=== PATIENT | male | born 1950 | race African-American/Black ===

== ENCOUNTER 2017-06-26 04:56 | Inpatient (IN) ==
[2017-06-26] MEDS ORDERED: ACETAMINOPHEN 325 MG TABLET PO PRN (06:42)
[2017-06-26] MEDS ORDERED: ONDANSETRON 4 MG/2 ML VIAL IV PRN (06:42)
[2017-06-26] MEDS: MORPHINE 2 MG/1 ML SYRINGE IV PRN (09:20)
[2017-06-26] MEDS ORDERED: MORPHINE 2 MG/1 ML SYRINGE ONE (09:20)
[2017-06-26 10:28] LABS: Basophils # 0.1 10*3/uL (0.0-0.2); Basophils % 0.4 % (0.0-0.8); Eosinophils # 0.2 10*3/uL (0.0-0.87); Eosinophils % 1.2 % (0.00-10.9); Hematocrit 38.8 VOL% (42.0-52.0); Hemoglobin 13.1 GM/DL (14.0-18.0); Immature Granulocytes % 0.3 %; Immature Granulocytes Absolute 0.04 #; Lymphocytes # 0.7 10*3/uL (1.4-4.0); Lymphocytes % 5.1 % (21.2-54.2); Mean Corpuscular HGB Conc 33.8 GM/DL (32-36); Mean Corpuscular Hemoglobin 31 PG (27-34); Mean Corpuscular Volume 90.7 FL (87-102); Mean Platelet Volume 11.6 FL (9.6-12.0); Monocytes # 1.3 10*3/uL (0.11-0.8); Monocytes % 9.6 % (1.7-12.7); Neutrophils # 11.5 10*3/uL (1.4-7.4); Neutrophils % 83.4 % (38.7-73.9); Platelet Count 176 T/CUMM (130-400); Red Blood Count 4.28 MC/CUMM (3.8-5.5); Red Cell Distribution Width 16.4 % (9.3-17.3); White Blood Count 13.8 T/CUMM (4-12)
[2017-06-26 10:55] LABS: Albumin 2.3 G/DL (3.4-5.0); Bilirubin,Total 1.7 MG/DL (0.2-1.0); Calcium 8.9 MG/DL (8.5-10.1); Osmolality,Calculated 278.2 MOS/KG (273-304); Potassium 4.7 MMOL/L (3.5-5.1); Total Protein 8.1 G/DL (6.4-8.3)
[2017-06-26] MEDS ORDERED: GLUCAGON 1 MG VIAL IM PRN (10:55)
[2017-06-26] MEDS: PANTOPRAZOLE 40 MG TABLET PO SCH (11:05)
[2017-06-26] MEDS ORDERED: MAGNESIUM SULF RIDER 4 GM in PREMIX 1 EACH IV PRN (11:21)
[2017-06-26] MEDS ORDERED: MAGNESIUM SULF RIDER 2 GM in PREMIX 1 EACH IV PRN (11:21)
[2017-06-26] MEDS ORDERED: POTASSIUM CHLORIDE RIDER 10 MEQ in PREMIX 1 EACH IV PRN (11:21)
[2017-06-26] MEDS: FAMOTIDINE 20 MG/2 ML VIAL IV SCH ×2 (11:22→20:19)
[2017-06-26] MEDS: SODIUM CHLOR 0.9% KCL 20 MEQ 20 MEQ/1,000 ML BAG IV SCH (11:22)
[2017-06-26] MEDS: BUDESONIDE/FORMOTEROL 160-4.5 INHALER 6 GM INH SCH ×2 (13:18→20:20)
[2017-06-26] MEDS: CIPROFLOXACIN INJ 400 MG in PREMIX 1 EACH IV SCH (13:20)
[2017-06-26] MEDS: INSULIN REGULAR 100 UNIT/ML SUBCUT SCH ×2 (13:21→18:49)
[2017-06-26] MEDS: ALBUTEROL/IPRATROPIUM 3 ML NEB RESP TX SCH ×2 (15:38→19:53)
[2017-06-27] MEDS: CIPROFLOXACIN INJ 400 MG in PREMIX 1 EACH IV SCH ×2 (00:30→11:31)
[2017-06-27] MEDS: SODIUM CHLOR 0.9% KCL 20 MEQ 20 MEQ/1,000 ML BAG IV SCH ×2 (00:55→10:03)
[2017-06-27] MEDS: INSULIN REGULAR 100 UNIT/ML SUBCUT SCH ×4 (01:04→18:28)
[2017-06-27] MEDS: ENOXAPARIN 40 MG/0.4 ML SYRINGE SUBCUT SCH (01:52)
[2017-06-27] MEDS: ALBUTEROL/IPRATROPIUM 3 ML NEB RESP TX SCH ×4 (02:10→19:33)
[2017-06-27 05:28] LABS: Basophils % 0.4 % (0.0-0.8); Eosinophils # 0.6 10*3/uL (0.0-0.87); Eosinophils % 5.7 % (0.00-10.9); Hematocrit 34.3 VOL% (42.0-52.0); Hemoglobin 11.5 GM/DL (14.0-18.0); Immature Granulocytes % 0.4 %; Immature Granulocytes Absolute 0.05 #; Lymphocytes # 1.7 10*3/uL (1.4-4.0); Lymphocytes % 15.4 % (21.2-54.2); Mean Corpuscular HGB Conc 33.5 GM/DL (32-36); Mean Corpuscular Hemoglobin 30 PG (27-34); Mean Corpuscular Volume 90.5 FL (87-102); Monocytes # 1.5 10*3/uL (0.11-0.8); Monocytes % 13.2 % (1.7-12.7); Neutrophils # 7.3 10*3/uL (1.4-7.4); Neutrophils % 64.9 % (38.7-73.9); Platelet Count 177 T/CUMM (130-400); Red Blood Count 3.79 MC/CUMM (3.8-5.5); Red Cell Distribution Width 16.2 % (9.3-17.3); White Blood Count 11.2 T/CUMM (4-12)
[2017-06-27 05:58] LABS: Magnesium 2.3 MG/DL (1.8-2.4)
[2017-06-27 06:09] LABS: Calcium 8.6 MG/DL (8.5-10.1); Osmolality,Calculated 284.4 MOS/KG (273-304)
[2017-06-27] MEDS: BUDESONIDE/FORMOTEROL 160-4.5 INHALER 6 GM INH SCH ×2 (08:39→21:34)
[2017-06-27] MEDS: FAMOTIDINE 20 MG/2 ML VIAL IV SCH ×2 (08:40→21:25)
[2017-06-27] MEDS: PANTOPRAZOLE 40 MG TABLET PO SCH (08:40)
[2017-06-27] MEDS: DEXTROSE 5% KCL 20 MEQ 20 MEQ/1,000 ML BAG IV SCH ×2 (10:04→17:26)
[2017-06-27] MEDS: DEXTROSE 50% 25 GM/50 ML VIAL IV PRN (11:31)
[2017-06-27] MEDS: MORPHINE 2 MG/1 ML SYRINGE IV PRN ×2 (17:26→21:29)
[2017-06-28] MEDS: CIPROFLOXACIN INJ 400 MG in PREMIX 1 EACH IV SCH ×2 (00:50→12:21)
[2017-06-28] MEDS: INSULIN REGULAR 100 UNIT/ML SUBCUT SCH ×4 (01:06→17:56)
[2017-06-28] MEDS: ALBUTEROL/IPRATROPIUM 3 ML NEB RESP TX SCH ×4 (01:24→19:50)
[2017-06-28 03:14] LABS: Basophils # 0.1 10*3/uL (0.0-0.2); Basophils % 0.7 % (0.0-0.8); Eosinophils # 0.7 10*3/uL (0.0-0.87); Eosinophils % 7.7 % (0.00-10.9); Hematocrit 34.8 VOL% (42.0-52.0); Hemoglobin 12.2 GM/DL (14.0-18.0); Immature Granulocytes % 0.7 %; Immature Granulocytes Absolute 0.06 #; Lymphocytes # 1.7 10*3/uL (1.4-4.0); Lymphocytes % 18.9 % (21.2-54.2); Mean Corpuscular HGB Conc 35.1 GM/DL (32-36); Mean Corpuscular Hemoglobin 31 PG (27-34); Mean Corpuscular Volume 88.3 FL (87-102); Mean Platelet Volume 11.4 FL (9.6-12.0); Monocytes # 1.4 10*3/uL (0.11-0.8); Monocytes % 15.2 % (1.7-12.7); Neutrophils # 5.1 10*3/uL (1.4-7.4); Neutrophils % 56.8 % (38.7-73.9); Platelet Count 184 T/CUMM (130-400); Red Blood Count 3.94 MC/CUMM (3.8-5.5); Red Cell Distribution Width 16.1 % (9.3-17.3)
[2017-06-28 03:42] LABS: Bilirubin,Total 1.9 MG/DL (0.2-1.0); Calcium 8.2 MG/DL (8.5-10.1); Osmolality,Calculated 278.7 MOS/KG (273-304); Potassium 4.2 MMOL/L (3.5-5.1); Total Protein 7.1 G/DL (6.4-8.3)
[2017-06-28] MEDS: ENOXAPARIN 40 MG/0.4 ML SYRINGE SUBCUT SCH (03:42)
[2017-06-28] MEDS: MORPHINE 2 MG/1 ML SYRINGE IV PRN ×3 (03:45→21:13)
[2017-06-28] MEDS: DEXTROSE 5% KCL 20 MEQ 20 MEQ/1,000 ML BAG IV SCH ×3 (03:47→17:54)
[2017-06-28] MEDS: FAMOTIDINE 20 MG/2 ML VIAL IV SCH ×2 (08:31→21:14)
[2017-06-28] MEDS: BUDESONIDE/FORMOTEROL 160-4.5 INHALER 6 GM INH SCH ×2 (08:34→21:14)
[2017-06-28] MEDS: PANTOPRAZOLE 40 MG TABLET PO SCH (09:36)
[2017-06-29] MEDS: ALBUTEROL/IPRATROPIUM 3 ML NEB RESP TX SCH ×4 (00:19→20:31)
[2017-06-29] MEDS: CIPROFLOXACIN INJ 400 MG in PREMIX 1 EACH IV SCH ×2 (01:42→12:43)
[2017-06-29] MEDS: ENOXAPARIN 40 MG/0.4 ML SYRINGE SUBCUT SCH (01:42)
[2017-06-29] MEDS: INSULIN REGULAR 100 UNIT/ML SUBCUT SCH ×4 (02:25→18:23)
[2017-06-29] MEDS: PANTOPRAZOLE 40 MG TABLET PO SCH (10:02)
[2017-06-29] MEDS: BUDESONIDE/FORMOTEROL 160-4.5 INHALER 6 GM INH SCH ×2 (10:09→20:27)
[2017-06-29] MEDS ORDERED: ALBUTEROL 2.5 MG/3 ML NEB RESP TX PRN (10:28)
[2017-06-29] MEDS: DEXTROSE 5% KCL 20 MEQ 20 MEQ/1,000 ML BAG IV SCH (10:38)
[2017-06-29] MEDS: MORPHINE 2 MG/1 ML SYRINGE IV PRN (12:34)
[2017-06-29] MEDS: FAMOTIDINE 20 MG/2 ML VIAL IV SCH ×2 (12:37→20:22)
[2017-06-29] MEDS: FUROSEMIDE 20 MG TABLET PO SCH (12:41)
[2017-06-29] MEDS: POTASSIUM CHLORIDE 20 MEQ TABLET PO SCH (12:41)
[2017-06-29 18:19] LABS: Apearance,Urine CLEAR (Clear); Bilirubin,Urine Negative (Negative); Blood, Urine Negative (Negative); Glucose,Urine (UA) 50 mg/dL (Negative); Ketones,Urine Negative (Negative); Mucus,Urine Occasional /LPF (Occasional); Nitrite,Urine Negative (Negative); Protein,Urine Negative; RBC,Urine <1 /HPF (0-4); Urine Color Yellow (Yellow); Urine Specific Gravity 1.005 (1.001-1.035); WBC,Urine <1 /HPF (0-6)
[2017-06-29] MEDS: GLIMEPIRIDE 4 MG TABLET PO SCH (20:25)
[2017-06-30] MEDS: ALBUTEROL/IPRATROPIUM 3 ML NEB RESP TX SCH ×4 (00:29→19:30)
[2017-06-30] MEDS: INSULIN REGULAR 100 UNIT/ML SUBCUT SCH ×4 (03:01→18:30)
[2017-06-30] MEDS: CIPROFLOXACIN INJ 400 MG in PREMIX 1 EACH IV SCH ×3 (03:24→23:38)
[2017-06-30] MEDS: ENOXAPARIN 40 MG/0.4 ML SYRINGE SUBCUT SCH (03:27)
[2017-06-30] MEDS: MORPHINE 2 MG/1 ML SYRINGE IV PRN (03:28)
[2017-06-30 06:08] LABS: Basophils # 0.1 10*3/uL (0.0-0.2); Basophils % 0.9 % (0.0-0.8); Eosinophils # 0.6 10*3/uL (0.0-0.87); Eosinophils % 8.4 % (0.00-10.9); Hematocrit 33.7 VOL% (42.0-52.0); Hemoglobin 11.9 GM/DL (14.0-18.0); Immature Granulocytes % 1.3 %; Lymphocytes # 1.6 10*3/uL (1.4-4.0); Lymphocytes % 20.9 % (21.2-54.2); Mean Corpuscular HGB Conc 35.3 GM/DL (32-36); Mean Corpuscular Hemoglobin 31 PG (27-34); Mean Corpuscular Volume 88.9 FL (87-102); Monocytes # 1.2 10*3/uL (0.11-0.8); Monocytes % 15.8 % (1.7-12.7); Neutrophils % 52.7 % (38.7-73.9); Platelet Count 184 T/CUMM (130-400); Red Blood Count 3.79 MC/CUMM (3.8-5.5); Red Cell Distribution Width 16.3 % (9.3-17.3); White Blood Count 7.6 T/CUMM (4-12)
[2017-06-30 06:35] LABS: Risk Ratio 4.67
[2017-06-30 06:36] LABS: Albumin 2.2 G/DL (3.4-5.0); Bilirubin,Total 1.5 MG/DL (0.2-1.0); Calcium 8.9 MG/DL (8.5-10.1); Magnesium 2.1 MG/DL (1.8-2.4); Osmolality,Calculated 268.2 MOS/KG (273-304); Potassium 4.6 MMOL/L (3.5-5.1); Total Protein 7.8 G/DL (6.4-8.3)
[2017-06-30 06:50] LABS: Band Neutrophils 1 % (0-10); Eosinophils 12 % (0-10); Giant Platelets Few; Hypochromasia 1+; Lymphocytes 12 % (20-55); Nucleated Red Blood Cells 1 (0-5); Ovalocytes Slight; Platelet Estimate Normal; Segmented Neutrophils 62 % (50-85); Total Cells Counted 100
[2017-06-30] MEDS: POTASSIUM CHLORIDE 20 MEQ TABLET PO SCH (08:38)
[2017-06-30] MEDS: GLIMEPIRIDE 4 MG TABLET PO SCH ×2 (08:38→20:41)
[2017-06-30] MEDS: FUROSEMIDE 20 MG TABLET PO SCH (08:38)
[2017-06-30] MEDS: BUDESONIDE/FORMOTEROL 160-4.5 INHALER 6 GM INH SCH ×2 (08:38→20:45)
[2017-06-30] MEDS: FAMOTIDINE 20 MG/2 ML VIAL IV SCH ×2 (08:38→20:45)
[2017-06-30] MEDS: PANTOPRAZOLE 40 MG TABLET PO SCH (08:39)
[2017-06-30] MEDS ORDERED: VALSARTAN/HCTZ 160-12.5 MG TABLET PO SCH (09:00)
[2017-06-30 13:43] LABS: ABG Base Excess -3.3 MMOL/L (-2.5-2.5); ABG HCO3 21.6 MMOL/L (20-26); ABG Oxygen Saturation 97.3 % (95-100); ABG PCO2 35.6 MM HG (35-48); ABG PH 7.382 (7.35-7.45); ABG PO2 87.5 MM HG (80-95); ABG TCO2 18.8 MMOL/L (23-27)
[2017-06-30 14:25] LABS: Albumin 2.4 G/DL (3.4-5.0); Bilirubin,Total 1.1 MG/DL (0.2-1.0); Calcium 9.2 MG/DL (8.5-10.1); Osmolality,Calculated 275.5 MOS/KG (273-304); Potassium 5.3 MMOL/L (3.5-5.1)
[2017-06-30] MEDS ORDERED: LACTULOSE 20 GM/30 ML UDCUP PO PRN (15:54)
[2017-06-30] MEDS ORDERED: SODIUM POLYSTYRENE SULFATE 15 GM/60 ML BOTTLE PO STA (16:39)
[2017-06-30] MEDS ORDERED: SODIUM CHLORIDE 0.45% 1,000 ML IV SCH (17:00)
[2017-06-30] MEDS ORDERED: SODIUM CHLORIDE 0.9% 1,000 ML IV SCH (17:00)
[2017-06-30 18:24] LABS: Hepatitis A Ab IgM Quant 0.09 Index; Hepatitis A Ab IgM Result Negative (Negative); Hepatitis B Core IgM Quant 0.16 Index; Hepatitis B Core IgM Result Negative (Negative); Hepatitis B Surface Ag Quant < 0.10 Index; Hepatitis B Surface Ag Result Negative (Negative); Hepatitis C Virus Ab Quant > 11.00 Index; Hepatitis C Virus Ab Result Positive (Negative)
[2017-06-30] MEDS: amLODIPine 5 MG TABLET PO SCH (20:42)
[2017-06-30] MEDS: LACTULOSE 20 GM/30 ML UDCUP PO SCH (20:43)
[2017-07-01] MEDS ORDERED: LACTULOSE 20 GM/30 ML UDCUP PO ONE (00:30)
[2017-07-01] MEDS: INSULIN REGULAR 100 UNIT/ML SUBCUT SCH ×4 (00:53→17:16)
[2017-07-01] MEDS: ALBUTEROL/IPRATROPIUM 3 ML NEB RESP TX SCH ×4 (01:22→19:50)
[2017-07-01] MEDS ORDERED: ZIPRASIDONE 20 MG/1 ML VIAL IM ONE (02:00)
[2017-07-01] MEDS: ENOXAPARIN 40 MG/0.4 ML SYRINGE SUBCUT SCH (02:37)
[2017-07-01 06:20] LABS: Basophils # 0.1 10*3/uL (0.0-0.2); Basophils % 0.6 % (0.0-0.8); Eosinophils # 0.6 10*3/uL (0.0-0.87); Hematocrit 32.4 VOL% (42.0-52.0); Hemoglobin 11.2 GM/DL (14.0-18.0); Immature Granulocytes % 1.2 %; Immature Granulocytes Absolute 0.11 #; Lymphocytes # 1.5 10*3/uL (1.4-4.0); Lymphocytes % 16.9 % (21.2-54.2); Mean Corpuscular HGB Conc 34.6 GM/DL (32-36); Mean Corpuscular Hemoglobin 31 PG (27-34); Mean Corpuscular Volume 89.5 FL (87-102); Mean Platelet Volume 11.1 FL (9.6-12.0); Monocytes # 1.8 10*3/uL (0.11-0.8); Monocytes % 19.5 % (1.7-12.7); Neutrophils % 54.8 % (38.7-73.9); Platelet Count 199 T/CUMM (130-400); Red Blood Count 3.62 MC/CUMM (3.8-5.5); Red Cell Distribution Width 16.6 % (9.3-17.3); White Blood Count 9.1 T/CUMM (4-12)
[2017-07-01] MEDS: DEXTROSE 50% 25 GM/50 ML VIAL IV PRN (06:34)
[2017-07-01 06:43] LABS: Band Neutrophils 2 % (0-10); Eosinophils 4 % (0-10); Lymphocytes 10 % (20-55); Segmented Neutrophils 71 % (50-85); Total Cells Counted 100
[2017-07-01 06:44] LABS: Hypochromasia 1+; Microcytosis 1+
[2017-07-01 06:45] LABS: Acanthocytes Few; Ovalocytes Slight; Platelet Estimate Adequate
[2017-07-01 07:01] LABS: Albumin 2.1 G/DL (3.4-5.0); Bilirubin,Total 1.1 MG/DL (0.2-1.0); Calcium 8.6 MG/DL (8.5-10.1); Osmolality,Calculated 273.8 MOS/KG (273-304)
[2017-07-01] MEDS: LACTULOSE 20 GM/30 ML UDCUP PO SCH ×3 (08:57→20:57)
[2017-07-01] MEDS: PANTOPRAZOLE 40 MG TABLET PO SCH (08:57)
[2017-07-01] MEDS: amLODIPine 5 MG TABLET PO SCH ×2 (08:57→20:57)
[2017-07-01] MEDS: GLIMEPIRIDE 4 MG TABLET PO SCH ×2 (08:58→20:57)
[2017-07-01] MEDS: FAMOTIDINE 20 MG/2 ML VIAL IV SCH ×2 (08:58→20:57)
[2017-07-01] MEDS: FUROSEMIDE 20 MG TABLET PO SCH (08:58)
[2017-07-01] MEDS: BUDESONIDE/FORMOTEROL 160-4.5 INHALER 6 GM INH SCH ×2 (09:02→21:05)
[2017-07-01] MEDS: CIPROFLOXACIN INJ 400 MG in PREMIX 1 EACH IV SCH ×2 (12:01→22:37)
[2017-07-02] MEDS: ALBUTEROL/IPRATROPIUM 3 ML NEB RESP TX SCH ×4 (00:44→19:38)
[2017-07-02] MEDS: INSULIN REGULAR 100 UNIT/ML SUBCUT SCH ×4 (00:47→17:02)
[2017-07-02] MEDS: ENOXAPARIN 40 MG/0.4 ML SYRINGE SUBCUT SCH (00:47)
[2017-07-02] MEDS: ZIPRASIDONE 20 MG/1 ML VIAL IM PRN ×3 (02:28→20:52)
[2017-07-02 06:00] LABS: Albumin 2.1 G/DL (3.4-5.0); Bilirubin,Direct 0.51 MG/DL (0.0-0.20); Bilirubin,Indirect 0.7 MG/DL (0.0-1.0); Bilirubin,Total 1.2 MG/DL (0.2-1.0); Total Protein 7.3 G/DL (6.4-8.3)
[2017-07-02] MEDS: amLODIPine 5 MG TABLET PO SCH ×2 (08:34→20:40)
[2017-07-02] MEDS: LACTULOSE 20 GM/30 ML UDCUP PO SCH ×4 (08:34→20:41)
[2017-07-02] MEDS: FUROSEMIDE 20 MG TABLET PO SCH (08:34)
[2017-07-02] MEDS: PANTOPRAZOLE 40 MG TABLET PO SCH (08:34)
[2017-07-02] MEDS: BUDESONIDE/FORMOTEROL 160-4.5 INHALER 6 GM INH SCH ×2 (08:35→20:43)
[2017-07-02] MEDS: FAMOTIDINE 20 MG/2 ML VIAL IV SCH ×2 (08:43→20:41)
[2017-07-02] MEDS: GLIMEPIRIDE 4 MG TABLET PO SCH ×2 (10:04→20:40)
[2017-07-02 11:19] LABS: Neutrophils,Peritoneal Fluid 6 %
[2017-07-02 11:21] LABS: RBC,Peritoneal Fluid 767 T/CUMM
[2017-07-02] MEDS: CIPROFLOXACIN INJ 400 MG in PREMIX 1 EACH IV SCH (12:46)
[2017-07-02] MEDS: risperiDONE 0.5 MG TABLET PO SCH (20:41)
[2017-07-03] MEDS: ALBUTEROL/IPRATROPIUM 3 ML NEB RESP TX SCH ×4 (00:08→19:39)
[2017-07-03] MEDS: CIPROFLOXACIN INJ 400 MG in PREMIX 1 EACH IV SCH ×3 (01:05→23:32)
[2017-07-03] MEDS: ENOXAPARIN 40 MG/0.4 ML SYRINGE SUBCUT SCH ×2 (01:05→23:33)
[2017-07-03] MEDS: INSULIN REGULAR 100 UNIT/ML SUBCUT SCH ×4 (01:09→17:59)
[2017-07-03] MEDS: ZIPRASIDONE 20 MG/1 ML VIAL IM PRN (03:06)
[2017-07-03 07:07] LABS: Basophils # 0.1 10*3/uL (0.0-0.2); Basophils % 0.5 % (0.0-0.8); Eosinophils # 0.4 10*3/uL (0.0-0.87); Eosinophils % 3.2 % (0.00-10.9); Hematocrit 35.7 VOL% (42.0-52.0); Immature Granulocytes % 1.7 %; Immature Granulocytes Absolute 0.22 #; Lymphocytes # 1.1 10*3/uL (1.4-4.0); Lymphocytes % 8.3 % (21.2-54.2); Mean Corpuscular HGB Conc 33.6 GM/DL (32-36); Mean Corpuscular Hemoglobin 31 PG (27-34); Mean Corpuscular Volume 91.5 FL (87-102); Mean Platelet Volume 11.1 FL (9.6-12.0); Monocytes # 1.9 10*3/uL (0.11-0.8); Monocytes % 14.2 % (1.7-12.7); Neutrophils # 9.5 10*3/uL (1.4-7.4); Neutrophils % 72.1 % (38.7-73.9); Platelet Count 187 T/CUMM (130-400); Red Cell Distribution Width 17.2 % (9.3-17.3); White Blood Count 13.2 T/CUMM (4-12)
[2017-07-03 07:40] LABS: Albumin 1.9 G/DL (3.4-5.0); Bilirubin,Total 1.3 MG/DL (0.2-1.0); Calcium 8.5 MG/DL (8.5-10.1); Osmolality,Calculated 285.7 MOS/KG (273-304); Potassium 4.4 MMOL/L (3.5-5.1); Total Protein 6.7 G/DL (6.4-8.3)
[2017-07-03] MEDS: LACTULOSE 20 GM/30 ML UDCUP PO SCH ×3 (09:04→21:34)
[2017-07-03] MEDS: FUROSEMIDE 20 MG TABLET PO SCH (09:04)
[2017-07-03] MEDS: BUDESONIDE/FORMOTEROL 160-4.5 INHALER 6 GM INH SCH ×2 (09:04→21:34)
[2017-07-03] MEDS: GLIMEPIRIDE 4 MG TABLET PO SCH ×2 (09:04→21:33)
[2017-07-03] MEDS: PANTOPRAZOLE 40 MG TABLET PO SCH (09:04)
[2017-07-03] MEDS: FAMOTIDINE 20 MG/2 ML VIAL IV SCH ×2 (09:04→21:33)
[2017-07-03] MEDS: amLODIPine 5 MG TABLET PO SCH ×2 (09:04→21:33)
[2017-07-03] MEDS: SODIUM CHLORIDE 0.9% 1,000 ML IV SCH ×2 (13:45→23:30)
[2017-07-03] MEDS: risperiDONE 0.5 MG TABLET PO SCH (21:33)
[2017-07-04] MEDS: INSULIN REGULAR 100 UNIT/ML SUBCUT SCH ×4 (01:35→18:18)
[2017-07-04] MEDS: ENOXAPARIN 40 MG/0.4 ML SYRINGE SUBCUT SCH (01:36)
[2017-07-04] MEDS: ALBUTEROL/IPRATROPIUM 3 ML NEB RESP TX SCH ×4 (01:36→20:10)
[2017-07-04] MEDS: SODIUM CHLORIDE 0.9% 1,000 ML IV SCH ×2 (06:24→16:05)
[2017-07-04 07:34] LABS: Calcium 8.1 MG/DL (8.5-10.1); Osmolality,Calculated 274.2 MOS/KG (273-304); Potassium 3.9 MMOL/L (3.5-5.1)
[2017-07-04] MEDS: PANTOPRAZOLE 40 MG TABLET PO SCH (09:44)
[2017-07-04] MEDS: FAMOTIDINE 20 MG/2 ML VIAL IV SCH (09:44)
[2017-07-04] MEDS: amLODIPine 5 MG TABLET PO SCH ×2 (09:44→23:29)
[2017-07-04] MEDS: LACTULOSE 20 GM/30 ML UDCUP PO SCH ×3 (09:44→23:29)
[2017-07-04] MEDS: GLIMEPIRIDE 4 MG TABLET PO SCH ×2 (09:44→23:29)
[2017-07-04] MEDS: BUDESONIDE/FORMOTEROL 160-4.5 INHALER 6 GM INH SCH ×2 (09:52→23:30)
[2017-07-04] MEDS: ACETAMINOPHEN 325 MG TABLET PO PRN (10:51)
[2017-07-04] MEDS: ZIPRASIDONE 20 MG/1 ML VIAL IM PRN (15:42)
[2017-07-04] MEDS: risperiDONE 0.5 MG TABLET PO SCH (23:30)
[2017-07-04] MEDS: ENOXAPARIN 30 MG/0.3 ML SYRINGE SUBCUT SCH (23:30)
[2017-07-05] MEDS: ALBUTEROL/IPRATROPIUM 3 ML NEB RESP TX SCH ×4 (00:31→20:43)
[2017-07-05] MEDS: ZIPRASIDONE 20 MG/1 ML VIAL IM PRN ×2 (01:13→17:42)
[2017-07-05] MEDS ORDERED: LORazepam 2 MG/1 ML VIAL IV ONE (01:30)
[2017-07-05] MEDS: INSULIN REGULAR 100 UNIT/ML SUBCUT SCH ×4 (01:47→19:02)
[2017-07-05] MEDS: LACTULOSE 160 GM/240 ML BOTTLE RECTAL SCH ×4 (03:01→22:28)
[2017-07-05 04:32] LABS: Calcium 7.9 MG/DL (8.5-10.1); Osmolality,Calculated 274.2 MOS/KG (273-304)
[2017-07-05] MEDS: DEXTROSE 50% 25 GM/50 ML VIAL IV PRN ×2 (05:58→09:41)
[2017-07-05] MEDS: SODIUM CHLORIDE 0.9% 1,000 ML IV SCH ×3 (05:59→14:08)
[2017-07-05] MEDS: GLIMEPIRIDE 4 MG TABLET PO SCH ×2 (08:14→22:28)
[2017-07-05] MEDS: LACTULOSE 20 GM/30 ML UDCUP PO SCH ×3 (10:42→21:32)
[2017-07-05] MEDS: amLODIPine 5 MG TABLET PO SCH ×2 (10:42→22:28)
[2017-07-05] MEDS: PANTOPRAZOLE 40 MG TABLET PO SCH (10:42)
[2017-07-05] MEDS: BUDESONIDE/FORMOTEROL 160-4.5 INHALER 6 GM INH SCH ×2 (10:48→21:33)
[2017-07-05] MEDS: FAMOTIDINE 20 MG/2 ML VIAL IV SCH (12:01)
[2017-07-05] MEDS: ACETAMINOPHEN 325 MG TABLET PO PRN (21:31)
[2017-07-05] MEDS: risperiDONE 0.5 MG TABLET PO SCH (21:34)
[2017-07-05] MEDS: ENOXAPARIN 30 MG/0.3 ML SYRINGE SUBCUT SCH ×2 (21:34→23:04)
[2017-07-06] MEDS: ALBUTEROL/IPRATROPIUM 3 ML NEB RESP TX SCH ×4 (00:23→19:22)
[2017-07-06] MEDS: INSULIN REGULAR 100 UNIT/ML SUBCUT SCH ×5 (01:32→23:58)
[2017-07-06] MEDS: SODIUM CHLORIDE 0.9% 1,000 ML IV SCH (01:33)
[2017-07-06] MEDS: DEXTROSE 50% 25 GM/50 ML VIAL IV PRN (01:58)
[2017-07-06] MEDS: ZIPRASIDONE 20 MG/1 ML VIAL IM PRN (02:29)
[2017-07-06] MEDS: LACTULOSE 160 GM/240 ML BOTTLE RECTAL SCH ×4 (03:41→20:45)
[2017-07-06] MEDS ORDERED: DEXTROSE 5% 1,000 ML IV SCH (06:30)
[2017-07-06] MEDS: DEXTROSE 5% NACL 0.45% 1,000 ML IV SCH ×2 (07:11→23:57)
[2017-07-06 07:12] LABS: Calcium 8.2 MG/DL (8.5-10.1); Potassium 4.3 MMOL/L (3.5-5.1)
[2017-07-06] MEDS: BUDESONIDE/FORMOTEROL 160-4.5 INHALER 6 GM INH SCH ×2 (10:24→20:45)
[2017-07-06] MEDS: FAMOTIDINE 20 MG/2 ML VIAL IV SCH (10:25)
[2017-07-06] MEDS: PANTOPRAZOLE 40 MG TABLET PO SCH (10:28)
[2017-07-06] MEDS: LACTULOSE 20 GM/30 ML UDCUP PO SCH ×3 (10:28→20:43)
[2017-07-06] MEDS: ACETAMINOPHEN 325 MG TABLET PO PRN ×2 (11:24→20:51)
[2017-07-06] MEDS: ENOXAPARIN 30 MG/0.3 ML SYRINGE SUBCUT SCH ×2 (20:43→23:34)
[2017-07-06] MEDS: risperiDONE 0.5 MG TABLET PO SCH (20:43)
[2017-07-07] MEDS: LACTULOSE 20 GM/30 ML UDCUP PO SCH ×4 (01:13→21:25)
[2017-07-07] MEDS: ALBUTEROL/IPRATROPIUM 3 ML NEB RESP TX SCH ×4 (01:18→20:11)
[2017-07-07 05:41] LABS: Basophils # 0.1 10*3/uL (0.0-0.2); Basophils % 0.7 % (0.0-0.8); Eosinophils # 0.6 10*3/uL (0.0-0.87); Eosinophils % 6.8 % (0.00-10.9); Hematocrit 29.4 VOL% (42.0-52.0); Hemoglobin 10.3 GM/DL (14.0-18.0); Immature Granulocytes % 1.1 %; Lymphocytes # 1.1 10*3/uL (1.4-4.0); Lymphocytes % 12.3 % (21.2-54.2); Mean Corpuscular Hemoglobin 31 PG (27-34); Mean Corpuscular Volume 88.8 FL (87-102); Mean Platelet Volume 10.4 FL (9.6-12.0); Monocytes # 1.4 10*3/uL (0.11-0.8); Monocytes % 16.4 % (1.7-12.7); Neutrophils # 5.5 10*3/uL (1.4-7.4); Neutrophils % 62.7 % (38.7-73.9); Platelet Count 205 T/CUMM (130-400); Red Blood Count 3.31 MC/CUMM (3.8-5.5); Red Cell Distribution Width 16.4 % (9.3-17.3); White Blood Count 8.7 T/CUMM (4-12)
[2017-07-07 06:05] LABS: Calcium 7.7 MG/DL (8.5-10.1); Osmolality,Calculated 282.1 MOS/KG (273-304); Potassium 4.2 MMOL/L (3.5-5.1)
[2017-07-07 06:07] LABS: Band Neutrophils 2 % (0-10); Eosinophils 4 % (0-10); Lymphocytes 10 % (20-55); Segmented Neutrophils 73 % (50-85); Total Cells Counted 100
[2017-07-07 06:08] LABS: Burr Cells Slight; Hypochromasia 1+; Microcytosis 1+; Target Cells Slight
[2017-07-07 06:10] LABS: Platelet Estimate Normal
[2017-07-07] MEDS: INSULIN REGULAR 100 UNIT/ML SUBCUT SCH ×3 (06:25→17:24)
[2017-07-07] MEDS: LACTULOSE 160 GM/240 ML BOTTLE RECTAL SCH ×4 (07:24→21:32)
[2017-07-07] MEDS: FAMOTIDINE 20 MG/2 ML VIAL IV SCH (10:02)
[2017-07-07] MEDS: PANTOPRAZOLE 40 MG TABLET PO SCH (10:02)
[2017-07-07] MEDS: GLIMEPIRIDE 4 MG TABLET PO SCH (10:04)
[2017-07-07] MEDS: BUDESONIDE/FORMOTEROL 160-4.5 INHALER 6 GM INH SCH ×2 (10:04→21:32)
[2017-07-07] MEDS: ZIPRASIDONE 20 MG/1 ML VIAL IM PRN ×2 (11:20→21:26)
[2017-07-07] MEDS: risperiDONE 0.5 MG TABLET PO SCH (21:26)
[2017-07-07] MEDS: ENOXAPARIN 30 MG/0.3 ML SYRINGE SUBCUT SCH (21:26)
[2017-07-08] MEDS: ALBUTEROL/IPRATROPIUM 3 ML NEB RESP TX SCH ×4 (02:12→19:43)
[2017-07-08] MEDS: DEXTROSE 5% NACL 0.45% 1,000 ML IV SCH ×3 (02:52→16:01)
[2017-07-08] MEDS: ENOXAPARIN 30 MG/0.3 ML SYRINGE SUBCUT SCH ×2 (02:53→21:14)
[2017-07-08] MEDS: INSULIN REGULAR 100 UNIT/ML SUBCUT SCH ×4 (02:54→17:43)
[2017-07-08] MEDS: LACTULOSE 160 GM/240 ML BOTTLE RECTAL SCH ×4 (02:54→21:23)
[2017-07-08] MEDS: SODIUM CHLORIDE 0.9% 1,000 ML IV SCH (09:52)
[2017-07-08] MEDS: PANTOPRAZOLE 40 MG TABLET PO SCH (09:57)
[2017-07-08] MEDS: LACTULOSE 20 GM/30 ML UDCUP PO SCH ×3 (09:57→21:12)
[2017-07-08] MEDS: GLIMEPIRIDE 4 MG TABLET PO SCH (09:57)
[2017-07-08] MEDS: BUDESONIDE/FORMOTEROL 160-4.5 INHALER 6 GM INH SCH ×2 (09:57→21:11)
[2017-07-08] MEDS: FAMOTIDINE 20 MG/2 ML VIAL IV SCH (09:57)
[2017-07-08] MEDS: ACETAMINOPHEN 325 MG TABLET PO PRN ×2 (16:07→21:19)
[2017-07-08] MEDS: RIFAXIMIN 550 MG TABLET PO SCH (21:12)
[2017-07-08] MEDS: risperiDONE 0.5 MG TABLET PO SCH (21:12)
[2017-07-09] MEDS: ALBUTEROL/IPRATROPIUM 3 ML NEB RESP TX SCH ×4 (00:23→19:26)
[2017-07-09] MEDS: INSULIN REGULAR 100 UNIT/ML SUBCUT SCH ×4 (01:38→19:02)
[2017-07-09] MEDS: ENOXAPARIN 30 MG/0.3 ML SYRINGE SUBCUT SCH ×2 (01:38→22:23)
[2017-07-09] MEDS: LACTULOSE 160 GM/240 ML BOTTLE RECTAL SCH ×4 (01:39→21:11)
[2017-07-09] MEDS: ACETAMINOPHEN 325 MG TABLET PO PRN ×2 (04:06→16:50)
[2017-07-09] MEDS: DEXTROSE 5% NACL 0.45% 1,000 ML IV SCH ×2 (05:40→17:01)
[2017-07-09] MEDS: GLIMEPIRIDE 4 MG TABLET PO SCH (08:40)
[2017-07-09] MEDS: RIFAXIMIN 550 MG TABLET PO SCH ×2 (08:40→21:11)
[2017-07-09] MEDS: LACTULOSE 20 GM/30 ML UDCUP PO SCH ×3 (08:41→21:11)
[2017-07-09] MEDS: FAMOTIDINE 20 MG/2 ML VIAL IV SCH (08:41)
[2017-07-09] MEDS: BUDESONIDE/FORMOTEROL 160-4.5 INHALER 6 GM INH SCH ×2 (08:53→21:12)
[2017-07-09] MEDS: PANTOPRAZOLE 40 MG TABLET PO SCH (10:08)
[2017-07-09] MEDS ORDERED: NITROGLYCERIN SL 0.4 MG TABLET SL PRN (19:18)
[2017-07-09] MEDS ORDERED: ASPIRIN CHEW 81 MG TABLET PO ONE (19:19)
[2017-07-09] MEDS ORDERED: MORPHINE 2 MG/1 ML SYRINGE IV ONE (19:21)
[2017-07-09] MEDS: risperiDONE 0.5 MG TABLET PO SCH (21:11)
[2017-07-10] MEDS: INSULIN REGULAR 100 UNIT/ML SUBCUT SCH ×2 (01:02→06:19)
[2017-07-10] MEDS: ALBUTEROL/IPRATROPIUM 3 ML NEB RESP TX SCH ×2 (01:11→08:00)
[2017-07-10] MEDS: ACETAMINOPHEN 325 MG TABLET PO PRN ×2 (01:30→09:24)
[2017-07-10] MEDS: LACTULOSE 160 GM/240 ML BOTTLE RECTAL SCH ×2 (01:32→09:26)
[2017-07-10 07:11] LABS: Basophils # 0.1 10*3/uL (0.0-0.2); Basophils % 1.2 % (0.0-0.8); Eosinophils # 0.6 10*3/uL (0.0-0.87); Eosinophils % 7.4 % (0.00-10.9); Hematocrit 30.3 VOL% (42.0-52.0); Hemoglobin 10.2 GM/DL (14.0-18.0); Immature Granulocytes % 0.7 %; Immature Granulocytes Absolute 0.06 #; Mean Corpuscular HGB Conc 33.7 GM/DL (32-36); Mean Corpuscular Hemoglobin 30 PG (27-34); Mean Corpuscular Volume 89.6 FL (87-102); Monocytes # 1.4 10*3/uL (0.11-0.8); Monocytes % 16.9 % (1.7-12.7); Neutrophils % 61.8 % (38.7-73.9); Platelet Count 229 T/CUMM (130-400); Red Blood Count 3.38 MC/CUMM (3.8-5.5); Red Cell Distribution Width 16.8 % (9.3-17.3); White Blood Count 8.1 T/CUMM (4-12)
[2017-07-10 07:25] VITALS: BP 115/59
[2017-07-10 07:43] LABS: Band Neutrophils 1 % (0-10); Eosinophils 2 % (0-10); Hypochromasia 1+; Lymphocytes 10 % (20-55); Microcytosis 1+; Segmented Neutrophils 70 % (50-85); Target Cells Slight; Total Cells Counted 100
[2017-07-10 07:44] LABS: Ovalocytes Slight; Platelet Estimate Normal
[2017-07-10 07:47] LABS: Albumin 1.9 G/DL (3.4-5.0); Bilirubin,Total 1.3 MG/DL (0.2-1.0); Calcium 8.5 MG/DL (8.5-10.1); Osmolality,Calculated 275.8 MOS/KG (273-304); Total Protein 6.4 G/DL (6.4-8.3)
[2017-07-10] MEDS ORDERED: ASPIRIN EC 81 MG TABLET PO SCH (09:00)
[2017-07-10] MEDS: GLIMEPIRIDE 4 MG TABLET PO SCH (09:24)
[2017-07-10] MEDS: LACTULOSE 20 GM/30 ML UDCUP PO SCH (09:24)
[2017-07-10] MEDS: RIFAXIMIN 550 MG TABLET PO SCH (09:25)
[2017-07-10] MEDS: PANTOPRAZOLE 40 MG TABLET PO SCH (09:25)
[2017-07-10] MEDS: FAMOTIDINE 20 MG/2 ML VIAL IV SCH (09:25)
[2017-07-10] MEDS: BUDESONIDE/FORMOTEROL 160-4.5 INHALER 6 GM INH SCH (09:38)
[2017-07-10 10:27] LABS: Troponin I Only < 0.015 NG/ML (0.00-0.045)
[2017-07-10] MEDS ORDERED: CARVEDILOL 3.125 MG TABLET PO SCH (21:00)
== END 2017-07-10 11:15 | disposition home or self-care (01) | DRG 388 ==
LOC: EDUNIT# → N.ED 04:56 → N.EDINP 06:42 → SUATTDRO 06:42 → N.4E 10:25
PROVIDERS: ADMIT Surgery

== ENCOUNTER 2018-08-25 22:45 | Inpatient (IN) ==
[2018-08-26 00:57] LABS: Apearance,Urine CLEAR (Clear); Bilirubin,Urine Negative (Negative); Blood, Urine Negative (Negative); Glucose,Urine (UA) Negative (Negative); Hyaline Casts,Urine 11 /LPF (0-3); Ketones,Urine Negative (Negative); Mucus,Urine Occasional /LPF (Occasional); Nitrite,Urine Negative (Negative); Protein,Urine Negative; RBC,Urine 1 /HPF (0-4); Squamous Epithelial Cell,Urine Occasional /HPF (0-10); Urine Color Yellow (Yellow); Urine Specific Gravity 1.014 (1.001-1.035); Urine Urobilinogen < 2.0 EU/DL (0.2-1.0); WBC,Urine 1 /HPF (0-6)
[2018-08-26] MEDS ORDERED: FLUCONAZOLE 100 MG TABLET PO STA (01:34)
[2018-08-26] MEDS ORDERED: CLINDAMYCIN 300 MG CAPSULE PO STA (01:34)
[2018-08-26] MEDS ORDERED: LACTULOSE 20 GM/30 ML UDCUP PO STA (02:27)
[2018-08-26] MEDS ORDERED: GLUCAGON 1 MG VIAL IM PRN (02:53)
[2018-08-26] MEDS ORDERED: DEXTROSE 50% 25 GM/50 ML SYRINGE IV PRN (02:53)
[2018-08-26] MEDS: LACTULOSE 20 GM/30 ML UDCUP PO SCH ×3 (06:30→12:46)
[2018-08-26 07:19] LABS: Basophils % 0.4 % (0.0-0.8); Eosinophils # 0.1 10*3/uL (0.0-0.87); Eosinophils % 1.8 % (0.00-10.9); Hematocrit 28.8 VOL% (42.0-52.0); Hemoglobin 9.7 GM/DL (14.0-18.0); Immature Granulocytes % 0.6 %; Immature Granulocytes Absolute 0.04 #; Lymphocytes # 0.8 10*3/uL (1.4-4.0); Mean Corpuscular HGB Conc 33.7 GM/DL (32-36); Mean Corpuscular Hemoglobin 29 PG (27-34); Mean Corpuscular Volume 85.7 FL (87-102); Mean Platelet Volume 10.4 FL (9.6-12.0); Monocytes # 1.2 10*3/uL (0.11-0.8); Neutrophils # 4.7 10*3/uL (1.4-7.4); Neutrophils % 68.2 % (38.7-73.9); Platelet Count 185 T/CUMM (130-400); Red Blood Count 3.36 MC/CUMM (3.8-5.5); White Blood Count 6.8 T/CUMM (4-12)
[2018-08-26 07:41] LABS: Albumin 1.5 G/DL (3.4-5.0); Bilirubin,Total 0.7 MG/DL (0.2-1.0); Calcium 8.1 MG/DL (8.5-10.1); Eosinophils 1 % (0-10); Hypochromasia 1+; Lymphocytes 10 % (20-55); Osmolality,Calculated 282.2 MOS/KG (273-304); Ovalocytes Slight; Platelet Estimate Adequate; Segmented Neutrophils 77 % (50-85); Total Cells Counted 100
[2018-08-26] MEDS: INSULIN REGULAR 100 UNIT/ML SUBCUT SCH ×4 (10:25→22:30)
[2018-08-26] MEDS: LACTULOSE 320 GM/480 ML BOTTLE RECTAL SCH ×3 (13:20→22:30)
[2018-08-26] MEDS ORDERED: ALBUMIN 25% 25 GM in PREMIX 1 EACH IV ONE (13:38)
[2018-08-27] MEDS: LACTULOSE 320 GM/480 ML BOTTLE RECTAL SCH ×2 (03:39→11:45)
[2018-08-27 05:33] LABS: Calcium 9.5 MG/DL (8.5-10.1); Osmolality,Calculated 291.7 MOS/KG (273-304); Potassium 4.4 MMOL/L (3.5-5.1)
[2018-08-27] MEDS: INSULIN REGULAR 100 UNIT/ML SUBCUT SCH ×4 (10:25→21:00)
[2018-08-27] MEDS: HEPARIN 5,000 UNIT/1 ML VIAL SUBCUT SCH ×2 (12:35→20:47)
[2018-08-27] MEDS: ONDANSETRON 4 MG/2 ML VIAL IV PRN (12:35)
[2018-08-27] MEDS: PANTOPRAZOLE 40 MG VIAL IV SCH (12:35)
[2018-08-27] MEDS: LACTULOSE 20 GM/30 ML UDCUP PO SCH ×3 (14:25→22:00)
[2018-08-27] MEDS: RIFAXIMIN 550 MG TABLET PO SCH (20:39)
[2018-08-27] MEDS: BUDESONIDE/FORMOTEROL 160-4.5 INHALER 6 GM INH SCH (21:24)
[2018-08-28] MEDS: HEPARIN 5,000 UNIT/1 ML VIAL SUBCUT SCH ×3 (02:53→20:55)
[2018-08-28] MEDS: LACTULOSE 20 GM/30 ML UDCUP PO SCH ×6 (03:33→21:04)
[2018-08-28] MEDS: INSULIN REGULAR 100 UNIT/ML SUBCUT SCH ×4 (08:03→20:54)
[2018-08-28] MEDS: BUDESONIDE/FORMOTEROL 160-4.5 INHALER 6 GM INH SCH ×2 (09:23→21:00)
[2018-08-28] MEDS: RIFAXIMIN 550 MG TABLET PO SCH ×2 (09:23→20:54)
[2018-08-28] MEDS: PANTOPRAZOLE 40 MG VIAL IV SCH (09:24)
[2018-08-28] MEDS: LEVOTHYROXINE 75 MCG TABLET PO SCH (09:24)
[2018-08-28 09:40] LABS: Calcium 8.1 MG/DL (8.5-10.1); Osmolality,Calculated 282.1 MOS/KG (273-304)
[2018-08-28] MEDS: ONDANSETRON 4 MG/2 ML VIAL IV PRN (12:00)
[2018-08-28] MEDS ORDERED: oxyCODONE ER 10 MG TABLET PO ONE (23:33)
[2018-08-29] MEDS ORDERED: oxyCODONE IR 5 MG TABLET PO ONE (00:06)
[2018-08-29] MEDS: LACTULOSE 20 GM/30 ML UDCUP PO SCH ×7 (01:34→21:45)
[2018-08-29] MEDS: HEPARIN 5,000 UNIT/1 ML VIAL SUBCUT SCH ×3 (02:48→19:23)
[2018-08-29 05:11] LABS: Basophils # 0.1 10*3/uL (0.0-0.2); Basophils % 0.7 % (0.0-0.8); Eosinophils # 0.4 10*3/uL (0.0-0.87); Eosinophils % 3.7 % (0.00-10.9); Hematocrit 27.6 VOL% (42.0-52.0); Hemoglobin 9.2 GM/DL (14.0-18.0); Immature Granulocytes % 0.8 %; Immature Granulocytes Absolute 0.08 #; Lymphocytes # 1.4 10*3/uL (1.4-4.0); Lymphocytes % 13.2 % (21.2-54.2); Mean Corpuscular HGB Conc 33.3 GM/DL (32-36); Mean Corpuscular Hemoglobin 29 PG (27-34); Monocytes # 2.1 10*3/uL (0.11-0.8); Monocytes % 19.4 % (1.7-12.7); Neutrophils # 6.6 10*3/uL (1.4-7.4); Neutrophils % 62.2 % (38.7-73.9); Platelet Count 172 T/CUMM (130-400); Red Blood Count 3.21 MC/CUMM (3.8-5.5); Red Cell Distribution Width 16.5 % (9.3-17.3); White Blood Count 10.6 T/CUMM (4-12)
[2018-08-29 05:34] LABS: Albumin 1.6 G/DL (3.4-5.0); Bilirubin,Total 0.7 MG/DL (0.2-1.0); Calcium 8.3 MG/DL (8.5-10.1); Osmolality,Calculated 287.8 MOS/KG (273-304); Potassium 4.5 MMOL/L (3.5-5.1); Total Protein 6.6 G/DL (6.4-8.3)
[2018-08-29 05:52] LABS: Eosinophils 2 % (0-10); Lymphocytes 11 % (20-55); Segmented Neutrophils 79 % (50-85); Total Cells Counted 100
[2018-08-29 05:57] LABS: Anisocytosis Slight
[2018-08-29 05:58] LABS: Microcytosis Slight; Ovalocytes Slight; Platelet Estimate Normal; Target Cells Few
[2018-08-29] MEDS: LEVOTHYROXINE 75 MCG TABLET PO SCH (06:32)
[2018-08-29] MEDS: INSULIN REGULAR 100 UNIT/ML SUBCUT SCH ×4 (08:38→21:45)
[2018-08-29] MEDS: RIFAXIMIN 550 MG TABLET PO SCH ×2 (08:39→21:45)
[2018-08-29] MEDS: PANTOPRAZOLE 40 MG VIAL IV SCH (08:39)
[2018-08-29] MEDS: BUDESONIDE/FORMOTEROL 160-4.5 INHALER 6 GM INH SCH ×2 (08:40→21:45)
[2018-08-29] MEDS ORDERED: DEXTROSE 50% 25 GM/50 ML VIAL IV ONE (16:16)
[2018-08-29] MEDS: ONDANSETRON 4 MG/2 ML VIAL IV PRN (19:20)
[2018-08-30] MEDS: LACTULOSE 20 GM/30 ML UDCUP PO SCH ×6 (02:40→21:00)
[2018-08-30] MEDS: HEPARIN 5,000 UNIT/1 ML VIAL SUBCUT SCH ×3 (02:40→20:57)
[2018-08-30] MEDS: LEVOTHYROXINE 75 MCG TABLET PO SCH (06:00)
[2018-08-30] MEDS: RIFAXIMIN 550 MG TABLET PO SCH ×2 (09:07→20:56)
[2018-08-30] MEDS: BUDESONIDE/FORMOTEROL 160-4.5 INHALER 6 GM INH SCH ×2 (09:07→20:58)
[2018-08-30] MEDS: INSULIN REGULAR 100 UNIT/ML SUBCUT SCH ×4 (09:08→20:57)
[2018-08-30] MEDS: glipiZIDE 5 MG TABLET PO SCH (09:11)
[2018-08-30] MEDS: PANTOPRAZOLE 40 MG TABLET PO SCH (09:11)
[2018-08-31] MEDS: LACTULOSE 20 GM/30 ML UDCUP PO SCH ×7 (01:27→21:18)
[2018-08-31] MEDS: HEPARIN 5,000 UNIT/1 ML VIAL SUBCUT SCH ×3 (03:56→20:42)
[2018-08-31 04:59] LABS: Basophils # 0.1 10*3/uL (0.0-0.2); Basophils % 0.6 % (0.0-0.8); Eosinophils # 0.6 10*3/uL (0.0-0.87); Eosinophils % 6.3 % (0.00-10.9); Hematocrit 26.9 VOL% (42.0-52.0); Hemoglobin 8.9 GM/DL (14.0-18.0); Immature Granulocytes % 2.1 %; Lymphocytes # 1.4 10*3/uL (1.4-4.0); Lymphocytes % 14.8 % (21.2-54.2); Mean Corpuscular HGB Conc 33.1 GM/DL (32-36); Mean Corpuscular Hemoglobin 29 PG (27-34); Mean Corpuscular Volume 86.5 FL (87-102); Mean Platelet Volume 10.9 FL (9.6-12.0); Monocytes # 1.7 10*3/uL (0.11-0.8); Monocytes % 18.5 % (1.7-12.7); Neutrophils # 5.4 10*3/uL (1.4-7.4); Neutrophils % 57.7 % (38.7-73.9); Platelet Count 180 T/CUMM (130-400); Red Blood Count 3.11 MC/CUMM (3.8-5.5); Red Cell Distribution Width 16.9 % (9.3-17.3); White Blood Count 9.3 T/CUMM (4-12)
[2018-08-31 05:26] LABS: Eosinophils 8 % (0-10); Lymphocytes 12 % (20-55); Platelet Estimate Adequate; Segmented Neutrophils 69 % (50-85); Total Cells Counted 100
[2018-08-31 05:27] LABS: Albumin 1.5 G/DL (3.4-5.0); Bilirubin,Total 0.6 MG/DL (0.2-1.0); Calcium 8.1 MG/DL (8.5-10.1); Hypochromasia 1+; Microcytosis Slight; Osmolality,Calculated 275.1 MOS/KG (273-304); Ovalocytes Slight; Potassium 4.3 MMOL/L (3.5-5.1); Total Protein 6.5 G/DL (6.4-8.3)
[2018-08-31] MEDS: LEVOTHYROXINE 75 MCG TABLET PO SCH (06:31)
[2018-08-31] MEDS: INSULIN REGULAR 100 UNIT/ML SUBCUT SCH ×4 (08:03→20:43)
[2018-08-31] MEDS: glipiZIDE 5 MG TABLET PO SCH (08:55)
[2018-08-31] MEDS: PANTOPRAZOLE 40 MG TABLET PO SCH (08:55)
[2018-08-31] MEDS: RIFAXIMIN 550 MG TABLET PO SCH ×2 (08:58→20:42)
[2018-08-31] MEDS: BUDESONIDE/FORMOTEROL 160-4.5 INHALER 6 GM INH SCH ×2 (09:00→20:43)
[2018-09-01] MEDS: LACTULOSE 20 GM/30 ML UDCUP PO SCH ×6 (02:56→21:08)
[2018-09-01] MEDS: HEPARIN 5,000 UNIT/1 ML VIAL SUBCUT SCH ×3 (02:56→19:47)
[2018-09-01 04:52] LABS: Basophils # 0.1 10*3/uL (0.0-0.2); Basophils % 0.7 % (0.0-0.8); Eosinophils # 0.7 10*3/uL (0.0-0.87); Eosinophils % 7.8 % (0.00-10.9); Hematocrit 26.5 VOL% (42.0-52.0); Hemoglobin 8.9 GM/DL (14.0-18.0); Immature Granulocytes % 2.3 %; Immature Granulocytes Absolute 0.21 #; Lymphocytes # 1.8 10*3/uL (1.4-4.0); Lymphocytes % 19.8 % (21.2-54.2); Mean Corpuscular HGB Conc 33.6 GM/DL (32-36); Mean Corpuscular Hemoglobin 29 PG (27-34); Mean Corpuscular Volume 86.3 FL (87-102); Mean Platelet Volume 10.5 FL (9.6-12.0); Monocytes # 1.6 10*3/uL (0.11-0.8); Monocytes % 17.8 % (1.7-12.7); Neutrophils # 4.7 10*3/uL (1.4-7.4); Neutrophils % 51.6 % (38.7-73.9); Platelet Count 189 T/CUMM (130-400); Red Blood Count 3.07 MC/CUMM (3.8-5.5); Red Cell Distribution Width 17.1 % (9.3-17.3); White Blood Count 9.1 T/CUMM (4-12)
[2018-09-01 05:20] LABS: Albumin 1.3 G/DL (3.4-5.0); Bilirubin,Total 0.6 MG/DL (0.2-1.0); Calcium 8.1 MG/DL (8.5-10.1); Osmolality,Calculated 275.8 MOS/KG (273-304); Potassium 4.4 MMOL/L (3.5-5.1); Thyroid Stimulating Hormone 5.43 uIU/ml (0.358-3.74); Total Protein 6.7 G/DL (6.4-8.3)
[2018-09-01 05:25] LABS: Band Neutrophils 1 % (0-10); Eosinophils 11 % (0-10); Hypochromasia 1+; Lymphocytes 19 % (20-55); Microcytosis Slight; Ovalocytes Slight; Platelet Estimate Adequate; Segmented Neutrophils 54 % (50-85); Target Cells Few; Total Cells Counted 100
[2018-09-01] MEDS: LEVOTHYROXINE 75 MCG TABLET PO SCH (06:06)
[2018-09-01] MEDS: INSULIN REGULAR 100 UNIT/ML SUBCUT SCH ×4 (07:52→21:08)
[2018-09-01 08:22] LABS: Free T4 (Free Thyroxine) 1.11 NG/DL (0.76-1.46)
[2018-09-01] MEDS: glipiZIDE 5 MG TABLET PO SCH (08:50)
[2018-09-01] MEDS: PANTOPRAZOLE 40 MG TABLET PO SCH (08:51)
[2018-09-01] MEDS: BUDESONIDE/FORMOTEROL 160-4.5 INHALER 6 GM INH SCH ×2 (08:51→21:08)
[2018-09-01] MEDS: RIFAXIMIN 550 MG TABLET PO SCH ×2 (08:51→21:08)
[2018-09-01] MEDS: SPIRONOLACTONE 50 MG TABLET PO SCH ×2 (12:09→21:08)
[2018-09-02] MEDS: LACTULOSE 20 GM/30 ML UDCUP PO SCH ×4 (01:01→13:40)
[2018-09-02] MEDS: HEPARIN 5,000 UNIT/1 ML VIAL SUBCUT SCH ×2 (03:36→11:29)
[2018-09-02] MEDS: LEVOTHYROXINE 75 MCG TABLET PO SCH (06:55)
[2018-09-02] MEDS: glipiZIDE 5 MG TABLET PO SCH (06:56)
[2018-09-02] MEDS: INSULIN REGULAR 100 UNIT/ML SUBCUT SCH ×2 (07:52→11:47)
[2018-09-02] MEDS ORDERED: METOPROLOL SUCCINATE XL 25 MG TABLET PO SCH (09:00)
[2018-09-02] MEDS: SPIRONOLACTONE 50 MG TABLET PO SCH (09:20)
[2018-09-02] MEDS: RIFAXIMIN 550 MG TABLET PO SCH (09:21)
[2018-09-02] MEDS: PANTOPRAZOLE 40 MG TABLET PO SCH (09:21)
[2018-09-02] MEDS: BUDESONIDE/FORMOTEROL 160-4.5 INHALER 6 GM INH SCH (09:24)
[2018-09-02] MEDS ORDERED: SODIUM CHLORIDE 0.9% 250 ML IV ONE (11:28)
[2018-09-02] MEDS ORDERED: ALBUMIN 25% 25 GM in PREMIX 1 EACH IV ONE (12:00)
[2018-09-02 16:33] VITALS: BP 114/61
== END 2018-09-02 16:56 | disposition swing bed (61) | DRG 442 ==
LOC: EDUNIT# → EDBD → N.ED 22:45 → SUATTDRO 08-26 02:59 → N.EDINP 08-26 02:59 → N.5E 08-26 03:18
PROVIDERS: ADMIT Internal Medicine; ATTEND Internal Medicine

== ENCOUNTER 2019-02-24 15:25 | Inpatient (IN) ==
[2019-02-24 17:38] LABS: Basophils # 0.1 10*3/uL (0.0-0.2); Basophils % 0.8 % (0.0-0.8); Eosinophils # 0.3 10*3/uL (0.0-0.87); Eosinophils % 2.8 % (0.00-10.9); Hematocrit 30.9 VOL% (42.0-52.0); Hemoglobin 10.8 GM/DL (14.0-18.0); Immature Granulocytes % 0.7 %; Immature Granulocytes Absolute 0.06 #; Lymphocytes % 11.4 % (21.2-54.2); Mean Corpuscular Volume 84.9 FL (87-102); Mean Platelet Volume 11.7 FL (9.6-12.0); Monocytes % 13.3 % (1.7-12.7); Platelet Count 165 T/CUMM (130-400); Red Blood Count 3.64 MC/CUMM (3.8-5.5); Red Cell Distribution Width 14.9 % (9.3-17.3); White Blood Count 8.9 T/CUMM (4-12)
[2019-02-24 18:10] LABS: Alanine Aminotransferase 29 U/L (16-61); Albumin 1.5 G/DL (3.4-5.0); Alkaline Phosphatase 114 U/L (45-117); Aspartate Amino Transferase 49 U/L (0-37); Bilirubin,Total < 0.39 MG/DL (0.2-1.0); Blood Urea Nitrogen 52 MG/DL (7-18); Calcium 7.9 MG/DL (8.5-10.1); Estimated Glom Filtration Rate 26 ML/MIN; Glucose 217 MG/DL (74-106); Osmolality,Calculated 295.7 MOS/KG (273-304); Total Protein 6.7 G/DL (6.4-8.3)
[2019-02-24] MEDS ORDERED: MORPHINE 4 MG/1 ML VIAL IV PRN (20:53)
[2019-02-24] MEDS ORDERED: ONDANSETRON 4 MG/2 ML VIAL IV PRN (20:53)
[2019-02-24] MEDS ORDERED: NICOTINE 21 MG/24 HR PATCH TRANSDERM PRN (20:53)
[2019-02-24] MEDS ORDERED: GLUCAGON 1 MG VIAL IM PRN (20:59)
[2019-02-24] MEDS ORDERED: DEXTROSE 50% 25 GM/50 ML VIAL IV PRN (20:59)
[2019-02-24] MEDS ORDERED: NITROGLYCERIN SL 0.4 MG TABLET SL PRN (20:59)
[2019-02-24] MEDS ORDERED: ENOXAPARIN 30 MG/0.3 ML SYRINGE SUBCUT SCH (21:00)
[2019-02-24] MEDS ORDERED: MAGNESIUM SULF RIDER 4 GM in PREMIX 1 EACH IV PRN (21:16)
[2019-02-24] MEDS ORDERED: MAGNESIUM SULF RIDER 2 GM in PREMIX 1 EACH IV PRN (21:16)
[2019-02-24] MEDS ORDERED: POTASSIUM CHLORIDE 20 MEQ TABLET PO STA (21:18)
[2019-02-24 21:24] LABS: Thyroid Stimulating Hormone 8.22 uIU/ml (0.358-3.74)
[2019-02-24] MEDS: LACTULOSE 20 GM/30 ML UDCUP PO SCH (21:25)
[2019-02-24 21:27] LABS: Apearance,Urine CLEAR (Clear); Bacteria,Urine Few /HPF (Few); Bilirubin,Urine Negative (Negative); Blood, Urine Negative (Negative); Glucose,Urine (UA) 50 mg/dL (Negative); Hyaline Casts,Urine 1 /LPF (0-3); Ketones,Urine Negative (Negative); Mucus,Urine Occasional /LPF (Occasional); Nitrite,Urine Negative (Negative); Protein,Urine Negative; RBC,Urine 6 /HPF (0-4); Squamous Epithelial Cell,Urine Occasional /HPF (0-10); Urine Color Yellow (Yellow); Urine Specific Gravity 1.015 (1.001-1.035); Urine Urobilinogen < 2.0 EU/DL (0.2-1.0); WBC,Urine 13 /HPF (0-6)
[2019-02-24] MEDS: RIFAXIMIN 550 MG TABLET PO SCH (23:11)
[2019-02-24] MEDS: CIPROFLOXACIN 500 MG TABLET PO SCH (23:11)
[2019-02-24] MEDS: SODIUM BICARBONATE 650 MG TABLET PO SCH (23:11)
[2019-02-25] MEDS: INSULIN REGULAR 100 UNIT/ML SUBCUT SCH ×4 (00:57→18:16)
[2019-02-25] MEDS ORDERED: LEVOTHYROXINE 75 MCG TABLET PO SCH ×2 (06:00→13:35)
[2019-02-25 06:36] LABS: Basophils # 0.1 10*3/uL (0.0-0.2); Eosinophils # 0.5 10*3/uL (0.0-0.87); Eosinophils % 6.3 % (0.00-10.9); Hematocrit 27.1 VOL% (42.0-52.0); Hemoglobin 9.5 GM/DL (14.0-18.0); Immature Granulocytes % 0.4 %; Immature Granulocytes Absolute 0.03 #; Lymphocytes # 1.5 10*3/uL (1.4-4.0); Lymphocytes % 17.6 % (21.2-54.2); Mean Corpuscular HGB Conc 35.1 GM/DL (32-36); Mean Corpuscular Volume 84.4 FL (87-102); Mean Platelet Volume 11.7 FL (9.6-12.0); Monocytes % 16.7 % (1.7-12.7); Platelet Count 156 T/CUMM (130-400); Red Blood Count 3.21 MC/CUMM (3.8-5.5); Red Cell Distribution Width 14.9 % (9.3-17.3); White Blood Count 8.4 T/CUMM (4-12)
[2019-02-25 06:58] LABS: Eosinophils 6 % (0-10); Lymphocytes 16 % (20-55); Segmented Neutrophils 60 % (50-85); Total Cells Counted 100
[2019-02-25 06:59] LABS: Burr Cells Few; Hypochromasia 1+; Platelet Estimate Normal
[2019-02-25 07:00] LABS: Ovalocytes 1+
[2019-02-25 07:02] LABS: Albumin 1.4 G/DL (3.4-5.0); Bilirubin,Total 0.7 MG/DL (0.2-1.0); Risk Ratio 3.04; Total Protein 5.8 G/DL (6.4-8.3); VLDL CHOLESTEROL 16.6 MG/DL
[2019-02-25] MEDS: LACTULOSE 20 GM/30 ML UDCUP PO SCH ×4 (08:32→22:04)
[2019-02-25] MEDS: SODIUM BICARBONATE 650 MG TABLET PO SCH ×3 (08:32→22:04)
[2019-02-25] MEDS: POTASSIUM CHLORIDE 20 MEQ TABLET PO PRN ×4 (08:33→17:01)
[2019-02-25] MEDS: METOPROLOL SUCCINATE XL 25 MG TABLET PO SCH (08:33)
[2019-02-25] MEDS: RIFAXIMIN 550 MG TABLET PO SCH ×2 (08:34→22:04)
[2019-02-25] MEDS: CIPROFLOXACIN 500 MG TABLET PO SCH (08:34)
[2019-02-25] MEDS: FERROUS SULFATE 325 MG TABLET PO SCH (08:35)
[2019-02-25] MEDS: PANTOPRAZOLE 40 MG TABLET PO SCH (08:35)
[2019-02-25] MEDS: FUROSEMIDE 40 MG TABLET PO SCH (08:37)
[2019-02-25] MEDS ORDERED: ERGOCALCIFEROL 50,000 UNIT CAPSULE PO SCH (09:00)
[2019-02-25] MEDS ORDERED: SPIRONOLACTONE 100 MG TABLET PO SCH (09:00)
[2019-02-25] MEDS ORDERED: ALBUMIN 25% 50 GM in PREMIX 1 EACH IV ONE (09:20)
[2019-02-25 09:56] LABS: INR 1.1; PT Patient Result 11.4 SECS (9.6-12.2); Partial Thromboplastin Time 25.7 SECS (20.8-36.0)
[2019-02-25] MEDS: POTASSIUM CHLORIDE RIDER 10 MEQ in PREMIX 1 EACH IV SCH ×3 (11:50→12:54)
[2019-02-25] MEDS: HYDROmorphone 2 MG/1 ML VIAL IV PRN (12:47)
[2019-02-25] MEDS: cefTRIAXone 1,000 MG in SYRINGE 1 EACH IV SCH (14:28)
[2019-02-25] MEDS: LEVOTHYROXINE 75 MCG TABLET PO SCH (14:29)
[2019-02-25] MEDS: SPIRONOLACTONE 100 MG TABLET PO SCH (22:04)
[2019-02-26] MEDS: POTASSIUM CHLORIDE 20 MEQ TABLET PO PRN ×7 (00:14→23:55)
[2019-02-26] MEDS: INSULIN REGULAR 100 UNIT/ML SUBCUT SCH ×4 (01:16→17:04)
[2019-02-26] MEDS: HYDROmorphone 2 MG/1 ML VIAL IV PRN (03:21)
[2019-02-26] MEDS: LEVOTHYROXINE 75 MCG TABLET PO SCH (05:32)
[2019-02-26] MEDS: LACTULOSE 20 GM/30 ML UDCUP PO SCH ×4 (08:07→20:25)
[2019-02-26] MEDS: SODIUM BICARBONATE 650 MG TABLET PO SCH ×3 (08:07→20:25)
[2019-02-26] MEDS: METOPROLOL SUCCINATE XL 25 MG TABLET PO SCH (08:08)
[2019-02-26] MEDS: FUROSEMIDE 40 MG TABLET PO SCH (08:08)
[2019-02-26] MEDS: FERROUS SULFATE 325 MG TABLET PO SCH (08:08)
[2019-02-26] MEDS: RIFAXIMIN 550 MG TABLET PO SCH ×2 (08:08→20:25)
[2019-02-26] MEDS: SPIRONOLACTONE 100 MG TABLET PO SCH ×2 (08:08→20:25)
[2019-02-26] MEDS: PANTOPRAZOLE 40 MG TABLET PO SCH (08:09)
[2019-02-26] MEDS ORDERED: POTASSIUM CHLORIDE 20 MEQ/15 ML UDCUP PO ONE (08:25)
[2019-02-26 08:48] LABS: Basophils # 0.1 10*3/uL (0.0-0.2); Basophils % 1.1 % (0.0-0.8); Eosinophils # 0.5 10*3/uL (0.0-0.87); Eosinophils % 6.8 % (0.00-10.9); Hematocrit 26.8 VOL% (42.0-52.0); Hemoglobin 9.5 GM/DL (14.0-18.0); Immature Granulocytes % 0.5 %; Immature Granulocytes Absolute 0.04 #; Lymphocytes # 1.5 10*3/uL (1.4-4.0); Lymphocytes % 18.9 % (21.2-54.2); Mean Corpuscular HGB Conc 35.4 GM/DL (32-36); Mean Corpuscular Volume 85.1 FL (87-102); Mean Platelet Volume 11.7 FL (9.6-12.0); Monocytes % 15.1 % (1.7-12.7); Neutrophils % 57.6 % (38.7-73.9); Platelet Count 148 T/CUMM (130-400); Red Blood Count 3.15 MC/CUMM (3.8-5.5); Red Cell Distribution Width 15.1 % (9.3-17.3); White Blood Count 7.9 T/CUMM (4-12)
[2019-02-26] MEDS ORDERED: CIPROFLOXACIN 500 MG TABLET PO SCH (09:00)
[2019-02-26 09:18] LABS: Albumin 1.9 G/DL (3.4-5.0); Bilirubin,Total 0.6 MG/DL (0.2-1.0); Calcium 8.4 MG/DL (8.5-10.1); Osmolality,Calculated 303.7 MOS/KG (273-304); Total Protein 6.4 G/DL (6.4-8.3)
[2019-02-26] MEDS: cefTRIAXone 1,000 MG in SYRINGE 1 EACH IV SCH (14:38)
[2019-02-27] MEDS: INSULIN REGULAR 100 UNIT/ML SUBCUT SCH ×4 (00:03→17:35)
[2019-02-27] MEDS: LEVOTHYROXINE 75 MCG TABLET PO SCH (05:32)
[2019-02-27 06:17] LABS: Basophils # 0.1 10*3/uL (0.0-0.2); Basophils % 0.8 % (0.0-0.8); Eosinophils # 0.5 10*3/uL (0.0-0.87); Eosinophils % 5.7 % (0.00-10.9); Hematocrit 26.4 VOL% (42.0-52.0); Immature Granulocytes % 0.7 %; Immature Granulocytes Absolute 0.06 #; Lymphocytes # 1.6 10*3/uL (1.4-4.0); Lymphocytes % 17.8 % (21.2-54.2); Mean Corpuscular HGB Conc 34.1 GM/DL (32-36); Mean Corpuscular Volume 85.7 FL (87-102); Mean Platelet Volume 12.2 FL (9.6-12.0); Monocytes % 15.3 % (1.7-12.7); Neutrophils % 59.7 % (38.7-73.9); Platelet Count 136 T/CUMM (130-400); Red Blood Count 3.08 MC/CUMM (3.8-5.5); Red Cell Distribution Width 15.2 % (9.3-17.3); White Blood Count 8.8 T/CUMM (4-12)
[2019-02-27 06:35] LABS: Alanine Aminotransferase 26 U/L (16-61); Albumin 1.6 G/DL (3.4-5.0); Alkaline Phosphatase 98 U/L (45-117); Aspartate Amino Transferase 43 U/L (0-37); Bilirubin,Total < 0.39 MG/DL (0.2-1.0); Blood Urea Nitrogen 47 MG/DL (7-18); Estimated Glom Filtration Rate 29 ML/MIN; Glucose 179 MG/DL (74-106); Osmolality,Calculated 301.8 MOS/KG (273-304); Total Protein 5.9 G/DL (6.4-8.3)
[2019-02-27] MEDS: SODIUM BICARBONATE 650 MG TABLET PO SCH ×3 (08:28→20:13)
[2019-02-27] MEDS: LACTULOSE 20 GM/30 ML UDCUP PO SCH ×4 (08:28→20:13)
[2019-02-27] MEDS: RIFAXIMIN 550 MG TABLET PO SCH ×2 (08:29→20:13)
[2019-02-27] MEDS: FUROSEMIDE 40 MG TABLET PO SCH (08:29)
[2019-02-27] MEDS: FERROUS SULFATE 325 MG TABLET PO SCH (08:29)
[2019-02-27] MEDS: PANTOPRAZOLE 40 MG TABLET PO SCH (08:29)
[2019-02-27] MEDS: METOPROLOL SUCCINATE XL 25 MG TABLET PO SCH (08:30)
[2019-02-27] MEDS: SPIRONOLACTONE 100 MG TABLET PO SCH ×2 (08:30→20:13)
[2019-02-27] MEDS: HYDROmorphone 2 MG/1 ML VIAL IV PRN (12:49)
[2019-02-27] MEDS: cefTRIAXone 1,000 MG in SYRINGE 1 EACH IV SCH (14:05)
[2019-02-28] MEDS: INSULIN REGULAR 100 UNIT/ML SUBCUT SCH ×5 (00:17→23:10)
[2019-02-28 05:02] LABS: Basophils # 0.1 10*3/uL (0.0-0.2); Eosinophils # 0.5 10*3/uL (0.0-0.87); Eosinophils % 5.3 % (0.00-10.9); Hematocrit 24.9 VOL% (42.0-52.0); Hemoglobin 8.5 GM/DL (14.0-18.0); Immature Granulocytes % 0.6 %; Immature Granulocytes Absolute 0.05 #; Lymphocytes # 1.6 10*3/uL (1.4-4.0); Lymphocytes % 18.5 % (21.2-54.2); Mean Corpuscular HGB Conc 34.1 GM/DL (32-36); Mean Corpuscular Volume 86.5 FL (87-102); Mean Platelet Volume 11.6 FL (9.6-12.0); Monocytes % 16.3 % (1.7-12.7); Neutrophils % 58.3 % (38.7-73.9); Platelet Count 126 T/CUMM (130-400); Red Blood Count 2.88 MC/CUMM (3.8-5.5); Red Cell Distribution Width 15.1 % (9.3-17.3); White Blood Count 8.8 T/CUMM (4-12)
[2019-02-28 05:28] LABS: Calcium 7.8 MG/DL (8.5-10.1); Osmolality,Calculated 297.8 MOS/KG (273-304)
[2019-02-28] MEDS: LEVOTHYROXINE 75 MCG TABLET PO SCH (06:03)
[2019-02-28 06:27] LABS: Eosinophils 6 % (0-10); Lymphocytes 22 % (20-55); Platelet Estimate Decreased; Segmented Neutrophils 61 % (50-85); Total Cells Counted 100
[2019-02-28] MEDS: SODIUM BICARBONATE 650 MG TABLET PO SCH ×3 (08:31→21:45)
[2019-02-28] MEDS: RIFAXIMIN 550 MG TABLET PO SCH ×2 (08:31→21:45)
[2019-02-28] MEDS: PANTOPRAZOLE 40 MG TABLET PO SCH (08:31)
[2019-02-28] MEDS: FERROUS SULFATE 325 MG TABLET PO SCH (08:31)
[2019-02-28] MEDS: SPIRONOLACTONE 100 MG TABLET PO SCH ×2 (08:32→21:45)
[2019-02-28] MEDS: METOPROLOL SUCCINATE XL 25 MG TABLET PO SCH (08:32)
[2019-02-28] MEDS: LACTULOSE 20 GM/30 ML UDCUP PO SCH ×4 (08:32→21:46)
[2019-02-28] MEDS: FUROSEMIDE 40 MG TABLET PO SCH (08:32)
[2019-02-28] MEDS: AMOXICILLIN/CLAV 875 MG TABLET PO SCH (13:56)
[2019-02-28] MEDS: POTASSIUM CHLORIDE 20 MEQ TABLET PO PRN (16:47)
[2019-02-28] MEDS: HYDROmorphone 2 MG/1 ML VIAL IV PRN ×2 (19:25→23:11)
[2019-03-01] MEDS: AMOXICILLIN/CLAV 875 MG TABLET PO SCH (00:53)
[2019-03-01] MEDS: HYDROmorphone 2 MG/1 ML VIAL IV PRN ×2 (02:48→06:24)
[2019-03-01] MEDS: LEVOTHYROXINE 75 MCG TABLET PO SCH (06:26)
[2019-03-01] MEDS: INSULIN REGULAR 100 UNIT/ML SUBCUT SCH ×3 (06:56→18:56)
[2019-03-01 07:02] LABS: Basophils # 0.1 10*3/uL (0.0-0.2); Basophils % 0.7 % (0.0-0.8); Eosinophils # 0.6 10*3/uL (0.0-0.87); Eosinophils % 7.1 % (0.00-10.9); Hematocrit 25.5 VOL% (42.0-52.0); Hemoglobin 8.6 GM/DL (14.0-18.0); Immature Granulocytes % 0.5 %; Immature Granulocytes Absolute 0.04 #; Lymphocytes # 1.5 10*3/uL (1.4-4.0); Lymphocytes % 18.9 % (21.2-54.2); Mean Corpuscular HGB Conc 33.7 GM/DL (32-36); Mean Corpuscular Volume 87.3 FL (87-102); Mean Platelet Volume 12.2 FL (9.6-12.0); Monocytes % 13.5 % (1.7-12.7); Neutrophils % 59.3 % (38.7-73.9); Platelet Count 117 T/CUMM (130-400); Red Blood Count 2.92 MC/CUMM (3.8-5.5); Red Cell Distribution Width 15.7 % (9.3-17.3); White Blood Count 8.2 T/CUMM (4-12)
[2019-03-01 07:20] LABS: Albumin 1.5 G/DL (3.4-5.0); Bilirubin,Total 0.5 MG/DL (0.2-1.0); Calcium 7.9 MG/DL (8.5-10.1); Osmolality,Calculated 298.1 MOS/KG (273-304); Total Protein 5.9 G/DL (6.4-8.3)
[2019-03-01] MEDS ORDERED: ALBUMIN 25% 25 GM in PREMIX 1 EACH IV PRN (08:16)
[2019-03-01] MEDS: LACTULOSE 20 GM/30 ML UDCUP PO SCH ×4 (08:29→20:13)
[2019-03-01] MEDS: RIFAXIMIN 550 MG TABLET PO SCH ×2 (08:30→20:13)
[2019-03-01] MEDS: PANTOPRAZOLE 40 MG TABLET PO SCH (08:30)
[2019-03-01] MEDS: SODIUM BICARBONATE 650 MG TABLET PO SCH ×3 (08:31→20:13)
[2019-03-01] MEDS: SPIRONOLACTONE 100 MG TABLET PO SCH ×2 (08:32→20:13)
[2019-03-01] MEDS: FERROUS SULFATE 325 MG TABLET PO SCH (08:32)
[2019-03-01] MEDS ORDERED: ALBUMIN 25% 12.5 GM in PREMIX 1 EACH IV PRN (10:52)
[2019-03-01 11:24] LABS: Neutrophils,Peritoneal Fluid 4 %
[2019-03-01 11:25] LABS: RBC,Peritoneal Fluid 380 T/CUMM
[2019-03-01] MEDS: METOPROLOL SUCCINATE XL 25 MG TABLET PO SCH (12:12)
[2019-03-01] MEDS: FUROSEMIDE 40 MG TABLET PO SCH (12:12)
[2019-03-01] MEDS: AMOXICILLIN/CLAV 500 MG TABLET PO SCH (20:13)
[2019-03-02] MEDS: INSULIN REGULAR 100 UNIT/ML SUBCUT SCH ×3 (00:38→13:26)
[2019-03-02 04:56] LABS: Basophils # 0.1 10*3/uL (0.0-0.2); Basophils % 0.7 % (0.0-0.8); Eosinophils # 0.6 10*3/uL (0.0-0.87); Eosinophils % 7.4 % (0.00-10.9); Hematocrit 25.5 VOL% (42.0-52.0); Hemoglobin 8.7 GM/DL (14.0-18.0); Immature Granulocytes % 0.7 %; Immature Granulocytes Absolute 0.06 #; Lymphocytes # 1.5 10*3/uL (1.4-4.0); Lymphocytes % 18.4 % (21.2-54.2); Mean Corpuscular HGB Conc 34.1 GM/DL (32-36); Mean Corpuscular Volume 87.6 FL (87-102); Mean Platelet Volume 13.1 FL (9.6-12.0); Monocytes % 13.9 % (1.7-12.7); Neutrophils % 58.9 % (38.7-73.9); Platelet Count 119 T/CUMM (130-400); Red Blood Count 2.91 MC/CUMM (3.8-5.5); Red Cell Distribution Width 15.8 % (9.3-17.3); White Blood Count 8.3 T/CUMM (4-12)
[2019-03-02 04:59] LABS: INR 1.1
[2019-03-02 05:19] LABS: Albumin 1.7 G/DL (3.4-5.0); Bilirubin,Total 0.5 MG/DL (0.2-1.0); Calcium 8.6 MG/DL (8.5-10.1); Osmolality,Calculated 295.1 MOS/KG (273-304); Total Protein 5.9 G/DL (6.4-8.3)
[2019-03-02] MEDS: LEVOTHYROXINE 75 MCG TABLET PO SCH (06:23)
[2019-03-02] MEDS: AMOXICILLIN/CLAV 500 MG TABLET PO SCH (09:48)
[2019-03-02] MEDS: SPIRONOLACTONE 100 MG TABLET PO SCH (09:48)
[2019-03-02] MEDS: SODIUM BICARBONATE 650 MG TABLET PO SCH (09:48)
[2019-03-02] MEDS: RIFAXIMIN 550 MG TABLET PO SCH (09:48)
[2019-03-02] MEDS: PANTOPRAZOLE 40 MG TABLET PO SCH (09:48)
[2019-03-02] MEDS: METOPROLOL SUCCINATE XL 25 MG TABLET PO SCH (09:49)
[2019-03-02] MEDS: FERROUS SULFATE 325 MG TABLET PO SCH (09:49)
[2019-03-02] MEDS: LACTULOSE 20 GM/30 ML UDCUP PO SCH (09:52)
[2019-03-02] MEDS: FUROSEMIDE 40 MG TABLET PO SCH (09:52)
[2019-03-02 12:39] VITALS: BP 103/53
== END 2019-03-02 13:33 | disposition home health service (06) | DRG 441 ==
LOC: N.ED 15:25 → N.EDINP 20:52 → N.5E 21:57
PROVIDERS: ADMIT Internal Medicine; ATTEND Internal Medicine

== ENCOUNTER 2019-03-16 14:24 | Observation (INO) ==
[2019-03-16 17:45] LABS: Basophils # 0.1 10*3/uL (0.0-0.2); Basophils % 0.8 % (0.0-0.8); Eosinophils # 0.3 10*3/uL (0.0-0.87); Eosinophils % 5.2 % (0.00-10.9); Hemoglobin 12.6 GM/DL (14.0-18.0); Immature Granulocytes % 0.5 %; Immature Granulocytes Absolute 0.03 #; Lymphocytes # 0.9 10*3/uL (1.4-4.0); Lymphocytes % 15.9 % (21.2-54.2); Mean Corpuscular HGB Conc 34.1 GM/DL (32-36); Mean Platelet Volume 12.3 FL (9.6-12.0); Monocytes % 11.1 % (1.7-12.7); Neutrophils % 66.5 % (38.7-73.9); Platelet Count 163 T/CUMM (130-400); Red Cell Distribution Width 15.5 % (9.3-17.3); White Blood Count 5.9 T/CUMM (4-12)
[2019-03-16 18:07] LABS: Alanine Aminotransferase 36 U/L (16-61); Albumin 1.9 G/DL (3.4-5.0); Alkaline Phosphatase 128 U/L (45-117); Aspartate Amino Transferase 60 U/L (0-37); Blood Urea Nitrogen 55 MG/DL (7-18); Calcium 8.5 MG/DL (8.5-10.1); Estimated Glom Filtration Rate 29 ML/MIN; Glucose 305 MG/DL (74-106); Osmolality,Calculated 308.1 MOS/KG (273-304); Total Protein 7.2 G/DL (6.4-8.3); Troponin I < 0.015 NG/ML (0.00-0.045)
[2019-03-16 18:09] LABS: Apearance,Urine CLEAR (Clear); Bacteria,Urine Occasional /HPF (Few); Bilirubin,Urine Negative (Negative); Blood, Urine Moderate mg/dL (Negative); Glucose,Urine (UA) >=500 mg/dL (Negative); Hyaline Casts,Urine 12 /LPF (0-3); Ketones,Urine Negative (Negative); Mucus,Urine Occasional /LPF (Occasional); Nitrite,Urine Negative (Negative); Protein,Urine Negative; RBC,Urine 6 /HPF (0-4); Squamous Epithelial Cell,Urine Occasional /HPF (0-10); Urine Color Yellow (Yellow); Urine Specific Gravity 1.013 (1.001-1.035); Urine Urobilinogen < 2.0 EU/DL (0.2-1.0); WBC,Urine 6 /HPF (0-6)
[2019-03-16 18:09] LABS: PT Patient Result 11.3 SECS (9.6-12.2); Partial Thromboplastin Time 25.2 SECS (20.8-36.0)
[2019-03-16] MEDS ORDERED: cefTRIAXone 1,000 MG in SYRINGE 1 EACH IV STA (18:14)
[2019-03-16] MEDS ORDERED: LACTULOSE 20 GM/30 ML UDCUP PO STA (18:21)
[2019-03-17] MEDS ORDERED: ONDANSETRON 4 MG/2 ML VIAL IV PRN (00:41)
[2019-03-17] MEDS ORDERED: MORPHINE 4 MG/1 ML VIAL IV PRN (00:41)
[2019-03-17] MEDS ORDERED: NICOTINE 21 MG/24 HR PATCH TRANSDERM PRN (00:41)
[2019-03-17] MEDS: LACTULOSE 20 GM/30 ML UDCUP PO SCH ×3 (04:01→16:42)
[2019-03-17] MEDS ORDERED: POTASSIUM CHLORIDE 20 MEQ TABLET PO ONE (12:14)
[2019-03-17] MEDS ORDERED: PANTOPRAZOLE 40 MG TABLET PO SCH (12:30)
[2019-03-17] MEDS ORDERED: SPIRONOLACTONE 100 MG TABLET PO SCH (12:30)
[2019-03-17] MEDS ORDERED: METOPROLOL SUCCINATE XL 25 MG TABLET PO SCH (12:30)
[2019-03-17] MEDS ORDERED: ERGOCALCIFEROL 50,000 UNIT CAPSULE PO SCH (12:30)
[2019-03-17] MEDS ORDERED: SODIUM BICARBONATE 650 MG TABLET PO SCH (15:00)
[2019-03-17] MEDS: RIFAXIMIN 550 MG TABLET PO SCH ×2 (15:38→16:41)
[2019-03-17 16:14] VITALS: BP 113/71
[2019-03-17] MEDS ORDERED: DEXTROSE 50% 25 GM/50 ML VIAL IV PRN (17:27)
[2019-03-17] MEDS ORDERED: GLUCAGON 1 MG VIAL IM PRN (17:27)
[2019-03-17] MEDS ORDERED: cefTRIAXone 1,000 MG in SYRINGE 1 EACH IV SCH (18:00)
[2019-03-17] MEDS ORDERED: INSULIN LISPRO 100 UNIT/ML SUBCUT SCH (21:00)
[2019-03-18] MEDS ORDERED: LEVOTHYROXINE 75 MCG TABLET PO SCH (06:30)
[2019-03-18] MEDS ORDERED: FERROUS SULFATE 325 MG TABLET PO SCH (08:00)
== END 2019-03-17 19:56 | disposition hospice, home (50) ==
LOC: N.EDINP 14:24 → N.ED 14:24 → N.4E 03-17 02:42
PROVIDERS: ADMIT Internal Medicine; ATTEND Internal Medicine

== ENCOUNTER 2019-04-25 18:26 | Inpatient (IN) ==
[2019-04-25 19:39] LABS: INR 1.1; PT Patient Result 11.4 SECS (9.6-12.2); Partial Thromboplastin Time 26.7 SECS (20.8-36.0)
[2019-04-25 19:42] LABS: Apearance,Urine CLEAR (Clear); Bilirubin,Urine Negative (Negative); Blood, Urine Negative (Negative); Glucose,Urine (UA) 50 mg/dL (Negative); Hyaline Casts,Urine 1 /LPF (0-3); Ketones,Urine Negative (Negative); Mucus,Urine Occasional /LPF (Occasional); Nitrite,Urine Negative (Negative); Protein,Urine Negative; RBC,Urine <1 /HPF (0-4); Squamous Epithelial Cell,Urine Occasional /HPF (0-10); Urine Color Yellow (Yellow); Urine Specific Gravity 1.015 (1.001-1.035); Urine Urobilinogen < 2.0 EU/DL (0.2-1.0); WBC,Urine 3 /HPF (0-6)
[2019-04-25 19:47] LABS: Basophils # 0.1 10*3/uL (0.0-0.2); Basophils % 0.9 % (0.0-0.8); Eosinophils # 0.1 10*3/uL (0.0-0.87); Hematocrit 28.9 VOL% (42.0-52.0); Hemoglobin 10.1 GM/DL (14.0-18.0); Immature Granulocytes % 0.4 %; Immature Granulocytes Absolute 0.03 #; Lymphocytes % 13.9 % (21.2-54.2); Mean Corpuscular HGB Conc 34.9 GM/DL (32-36); Mean Corpuscular Volume 87.3 FL (87-102); Mean Platelet Volume 12.2 FL (9.6-12.0); Monocytes % 9.9 % (1.7-12.7); Neutrophils % 73.9 % (38.7-73.9); Platelet Count 172 T/CUMM (130-400); Red Blood Count 3.31 MC/CUMM (3.8-5.5); Red Cell Distribution Width 16.5 % (9.3-17.3); White Blood Count 6.9 T/CUMM (4-12)
[2019-04-25 19:51] LABS: Albumin 2.2 G/DL (3.4-5.0); Bilirubin,Total 0.6 MG/DL (0.2-1.0); Calcium 8.2 MG/DL (8.5-10.1); Osmolality,Calculated 310.7 MOS/KG (273-304); Total Protein 7.1 G/DL (6.4-8.3)
[2019-04-25] MEDS ORDERED: ONDANSETRON 4 MG/2 ML VIAL IV PRN (20:20)
[2019-04-25] MEDS ORDERED: DOCUSATE SODIUM 100 MG CAPSULE PO PRN (20:20)
[2019-04-25] MEDS ORDERED: NITROGLYCERIN SL 0.4 MG TABLET SL PRN (20:25)
[2019-04-25] MEDS ORDERED: LACTATED RINGERS 1,000 ML IV SCH (20:30)
[2019-04-25] MEDS ORDERED: GLUCAGON 1 MG VIAL IM PRN (20:53)
[2019-04-25] MEDS ORDERED: DEXTROSE 50% 25 GM/50 ML VIAL IV PRN (20:53)
[2019-04-25] MEDS: HYDROmorphone 2 MG/1 ML VIAL IV PRN (23:06)
[2019-04-25] MEDS: SODIUM CHLORIDE 0.9% 1,000 ML IV SCH (23:06)
[2019-04-25] MEDS: POTASSIUM CHLORIDE RIDER 10 MEQ in PREMIX 1 EACH IV PRN (23:08)
[2019-04-25] MEDS: LACTULOSE 20 GM/30 ML UDCUP PO SCH (23:11)
[2019-04-25] MEDS: RIFAXIMIN 550 MG TABLET PO SCH (23:11)
[2019-04-25] MEDS: MIDODRINE 5 MG TABLET PO SCH (23:12)
[2019-04-26] MEDS: POTASSIUM CHLORIDE RIDER 10 MEQ in PREMIX 1 EACH IV PRN ×7 (01:05→13:40)
[2019-04-26] MEDS: INSULIN REGULAR 100 UNIT/ML SUBCUT SCH ×4 (01:05→18:16)
[2019-04-26] MEDS: LEVOTHYROXINE 75 MCG TABLET PO SCH (05:27)
[2019-04-26 06:14] LABS: Basophils % 0.3 % (0.0-0.8); Hematocrit 29.8 VOL% (42.0-52.0); Hemoglobin 10.1 GM/DL (14.0-18.0); Immature Granulocytes % 0.6 %; Immature Granulocytes Absolute 0.06 #; Lymphocytes # 0.4 10*3/uL (1.4-4.0); Lymphocytes % 3.8 % (21.2-54.2); Mean Corpuscular HGB Conc 33.9 GM/DL (32-36); Mean Platelet Volume 12.7 FL (9.6-12.0); Neutrophils % 88.3 % (38.7-73.9); Platelet Count 161 T/CUMM (130-400); Red Blood Count 3.35 MC/CUMM (3.8-5.5); Red Cell Distribution Width 16.5 % (9.3-17.3); White Blood Count 10.4 T/CUMM (4-12)
[2019-04-26 06:35] LABS: Calcium 7.9 MG/DL (8.5-10.1); Osmolality,Calculated 305.3 MOS/KG (273-304); Thyroid Stimulating Hormone 5.29 uIU/ml (0.358-3.74)
[2019-04-26 06:54] LABS: Band Neutrophils 2 % (0-10); Hypochromasia 1+; Lymphocytes 3 % (20-55); Microcytosis 1+; Ovalocytes Slight; Segmented Neutrophils 86 % (50-85); Total Cells Counted 100
[2019-04-26 06:55] LABS: Platelet Estimate Adequate
[2019-04-26] MEDS: CIPROFLOXACIN 500 MG TABLET PO SCH (10:26)
[2019-04-26] MEDS: RIFAXIMIN 550 MG TABLET PO SCH ×2 (10:26→20:05)
[2019-04-26] MEDS: LACTULOSE 20 GM/30 ML UDCUP PO SCH ×3 (10:26→20:59)
[2019-04-26] MEDS: PANTOPRAZOLE 40 MG VIAL IV SCH (10:27)
[2019-04-26] MEDS: HYDROmorphone 2 MG/1 ML VIAL IV PRN ×2 (10:41→23:50)
[2019-04-26] MEDS: MIDODRINE 5 MG TABLET PO SCH ×3 (10:49→20:05)
[2019-04-26] MEDS: SODIUM CHLORIDE 0.9% 1,000 ML IV SCH (18:17)
[2019-04-27] MEDS: INSULIN REGULAR 100 UNIT/ML SUBCUT SCH ×2 (00:47→06:21)
[2019-04-27] MEDS ORDERED: PIPERACILLIN/TAZOBACTAM 3,375 MG in SODIUM CHLORIDE 0.9% 100 ML IV SCH (04:00)
[2019-04-27] MEDS ORDERED: PHENYLEPHRINE DRIP 40 MG/250 ML PREMIX IV ONE (04:03)
[2019-04-27 04:04] LABS: Allen Test Positive; Pt O2 Delivery Device Ventilator
[2019-04-27 04:08] LABS: ABG Base Excess -28.5 MMOL/L (-2.5-2.5); ABG HCO3 5.4 MMOL/L (20-26); ABG Oxygen Saturation 97.2 % (95-100); ABG PCO2 54.3 MM HG (35-48); ABG TCO2 7.9 MMOL/L (23-27)
[2019-04-27] MEDS: PHENYLEPHRINE DRIP 40 MG/250 ML PREMIX IV PRN ×4 (04:10→10:07)
[2019-04-27] MEDS ORDERED: SODIUM BICARBONATE 50 MEQ/50 ML VIAL IV ONE ×3 (04:16→05:51)
[2019-04-27] MEDS ORDERED: NOREPINEPHRINE 4 MG/4 ML VIAL IV ONE (04:17)
[2019-04-27] MEDS: NOREPINEPHRINE 8 MG in SODIUM CHLORIDE 0.9% 242 ML IV PRN ×2 (04:21→07:45)
[2019-04-27 05:13] LABS: Basophils % 0.5 % (0.0-0.8); Eosinophils % 0.2 % (0.00-10.9); Immature Granulocytes % 1.1 %; Immature Granulocytes Absolute 0.09 #; Lymphocytes # 0.7 10*3/uL (1.4-4.0); Lymphocytes % 8.4 % (21.2-54.2); Mean Corpuscular HGB Conc 31.3 GM/DL (32-36); Mean Corpuscular Volume 94.4 FL (87-102); Mean Platelet Volume 12.6 FL (9.6-12.0); Monocytes % 3.1 % (1.7-12.7); NRBC # 0.03 10*3/uL; Neutrophils % 86.7 % (38.7-73.9); Platelet Count 157 T/CUMM (130-400); Red Blood Count 3.39 MC/CUMM (3.8-5.5); Red Cell Distribution Width 17.4 % (9.3-17.3); White Blood Count 8.1 T/CUMM (4-12)
[2019-04-27] MEDS ORDERED: SODIUM BICARB INJ 100 MEQ in SODIUM CHLORIDE 0.45% 1,000 ML IV SCH (05:15)
[2019-04-27 05:21] LABS: INR 1.2; PT Patient Result 12.9 SECS (9.6-12.2)
[2019-04-27 05:33] LABS: Albumin 1.5 G/DL (3.4-5.0); Bilirubin,Total 0.4 MG/DL (0.2-1.0); Osmolality,Calculated 324.1 MOS/KG (273-304); Total Protein 5.7 G/DL (6.4-8.3)
[2019-04-27 05:39] LABS: ABG Base Excess -24.5 MMOL/L (-2.5-2.5); ABG HCO3 7.5 MMOL/L (20-26); ABG PCO2 50.8 MM HG (35-48); ABG TCO2 9.4 MMOL/L (23-27); Allen Test Positive; Pt O2 Delivery Device Ventilator
[2019-04-27 05:41] LABS: ABG PH 6.865 (7.35-7.45)
[2019-04-27 05:44] LABS: Band Neutrophils 13 % (0-10); Eosinophils 1 % (0-10); Lymphocytes 12 % (20-55); Metamyelocytes 3 %; Myelocytes 2 %; Nucleated Red Blood Cells 2 (0-5); Segmented Neutrophils 66 % (50-85); Total Cells Counted 100
[2019-04-27 05:45] LABS: Hypochromasia 1+; Microcytosis 1+; Polychromasia Slight; Target Cells Slight
[2019-04-27 05:58] LABS: Partial Thromboplastin Time 53.3 SECS (20.8-36.0)
[2019-04-27] MEDS: LEVOTHYROXINE 75 MCG TABLET PO SCH (05:59)
[2019-04-27 06:12] LABS: CKMB % 2.9 %; Troponin I 0.024 NG/ML (0.00-0.045)
[2019-04-27] MEDS ORDERED: LORazepam 2 MG/1 ML VIAL ONE (06:16)
[2019-04-27] MEDS: LORazepam 2 MG/1 ML VIAL IV PRN ×2 (06:21→09:00)
[2019-04-27] MEDS ORDERED: HYDROCORTISONE 100 MG VIAL IV ONE (06:43)
[2019-04-27 07:38] VITALS: BP 150/78
[2019-04-27 07:49] LABS: ABG Base Excess -24.2 MMOL/L (-2.5-2.5); ABG HCO3 7.5 MMOL/L (20-26); ABG PCO2 61.7 MM HG (35-48); ABG PO2 80.1 MM HG (80-95); ABG TCO2 10.9 MMOL/L (23-27); Allen Test Positive; Pt O2 Delivery Device Ventilator
[2019-04-27 07:51] LABS: ABG PH 6.836 (7.35-7.45)
[2019-04-27] MEDS ORDERED: HYDROCORTISONE 100 MG VIAL IV SCH (08:00)
[2019-04-27] MEDS: MIDODRINE 5 MG TABLET PO SCH (08:08)
[2019-04-27] MEDS ORDERED: PHENobarbital 130 MG/1 ML VIAL IV ONE (08:08)
[2019-04-27] MEDS: CIPROFLOXACIN 500 MG TABLET PO SCH (08:08)
[2019-04-27] MEDS: RIFAXIMIN 550 MG TABLET PO SCH (09:14)
[2019-04-27] MEDS: LACTULOSE 20 GM/30 ML UDCUP PO SCH (09:14)
[2019-04-27] MEDS ORDERED: EPINEPHrine 1 MG/ML VIAL ONE (09:58)
[2019-04-27] MEDS ORDERED: EPINEPHrine 1 MG/10 ML SYRINGE ONE (10:54)
[2019-04-27] MEDS ORDERED: CALCIUM CHLORIDE 1,000 MG/10 ML SYRINGE IV ONE (10:54)
[2019-04-27] MEDS ORDERED: ceFAZolin 2,000 MG in PREMIX 1 EACH IV ONE (11:46)
[2019-04-27] MEDS ORDERED: VANCOMYCIN INJ 1,000 MG in SODIUM CHLORIDE 0.9% 250 ML IV ONE (11:46)
[2019-04-27] MEDS: PANTOPRAZOLE 40 MG VIAL IV SCH (13:06)
== END 2019-04-27 10:58 | disposition expired | DRG 536 ==
LOC: EDUNIT# → EDBD → N.ED 18:26 → SUPCPDRO 19:33 → N.EDINP 19:33 → SUATTDRO 19:33 → N.3E 20:17 → N.ICU 04-27 03:57
PROVIDERS: ADMIT Hospitalist; ATTEND Internal Medicine